=== PATIENT | female | born 1965 | race Caucasian/White ===

== ENCOUNTER 2018-11-27 18:31 | Inpatient (IN) | payer OTHER ==
[2018-11-27 19:00] LABS: #Eosinphils 0.1 thou/uL (0.0-0.7); #Lymphocytes 1.7 thou/uL (1.20-3.40); #Monocytes 0.5 thou/uL (0.11-0.59); #Neutrophils 2.8 thou/uL (1.40-6.50); %Basophils 0.5 % (0.0-1.0); %Lymphocytes 33.1 % (21.0-51.0); %Monocytes 9.4 % (0.0-10.0); Hemoglobin 12.1 g/dL (12.0-16.0); Mean Corpuscular HGB CONC 32.8 g/dL (32.0-36.0); Mean Corpuscular Volume 94.6 fL (78.0-98.0); Mean Platelet Volume 8.4 fL (7.4-10.4); Platelet Count 259 thou/uL (130-400); RBC Distribution Width 13.1 % (11.5-14.5); Red Blood Cell (RBC) Count 3.91 mill/uL (4.20-5.40); White Blood Cell (WBC) Count 5.1 thou/uL (4.8-10.8)
[2018-11-27 19:08] LABS: INR-International Normal Ratio 0.9; PTT 25.9 SEC (22.9-36.1); Prothrombin Time 12.1 SEC (12.0-14.7)
--- NOTE | 2018-11-27 19:13 | RAD ---
PORTABLE CHEST ONE VIEW: 11/27/18 at 6:56 p.m. HISTORY: Chest pain. FINDINGS: The heart size is normal. The lungs are well expanded without focal areas of consolidation, pneumotho races, or pleural effusions. There are postop changes of the upper abdomen. IMPRESSION: No acute process. POS: [facility]
[2018-11-27 19:26] LABS: ALT (SGPT) 31 U/L (8-55); AST (SGOT) 31 U/L (5-34); Albumin 4.1 g/dL (3.5-5.0); Alkaline Phosphatase 127 U/L (40-150); Anion Gap 12 mmol/L (10-20); BUN (Urea Nitrogen) 13 mg/dL (9.8-20.1); Bilirubin, Total 0.2 mg/dL (0.2-1.2); CK (CPK) 74 U/L (29-168); Calc. Creatinine Clearance 0 mL/min (70-130); Calcium 9.5 mg/dL (7.8-10.44); Carbon Dioxide 22 mmol/L (22-29); Chloride 109 mmol/L (98-107); Estimated GFR-MDRD Greater than 90; Globulin 2.7 g/dL (2.4-3.5); Glucose 95 mg/dL (70-105); Magnesium 1.8 mg/dL (1.6-2.6); Potassium 3.8 mmol/L (3.5-5.1); Protein, Total 6.8 g/dL (6.0-8.3); Sodium 139 mmol/L (136-145)
[2018-11-27 19:28] LABS: Phosphorus 2.8 mg/dL (2.3-4.7)
[2018-11-27 19:29] LABS: Bilirubin Negative (Negative); Blood, Urine Negative (Negative); Clarity TURBID (Clear); Glucose, Urine (Dipstick) Negative (Negative); Leukocyte Negative (Negative); Nitrite Negative (Negative); Protein, Urine (Dipstick) Negative (Neg-Trace); Specific Gravity, Urine 1.005 (1.002-1.036); Urobilinogen 0.2 mg/dL (0.2-1.0); pH, Urine 7.5 (5.0-9.0)
[2018-11-27] MEDS ORDERED: Fentanyl 100 MCG/2 ML VIAL ONE (20:04)
[2018-11-27 20:40] LABS: Amphetamine Not Detected (NotDetected); Barbiturates Screen Not Detected (NotDetected); Benzodiazepine Screen Not Detected (NotDetected); Cocaine Metabolite Screen Not Detected (NotDetected); Medtox Control Line Valid? VALID (VALID); Medtox Reader # READER 1; Methadone Not Detected (NotDetected); Methamphetamine Not Detected (NotDetected); Opiate Screen Not Detected (NotDetected); Oxycodone Screen Not Detected (NotDetected); Phencyclidine (PCP) Not Detected (NotDetected); THC/Cannabinoid Screen Not Detected (NotDetected); Tricyclic Screen Not Detected (NotDetected)
[2018-11-27 22:26] LABS: Troponin I 0.016 ng/mL (< 0.028)
[2018-11-28] MEDS ORDERED: Fentanyl 100 MCG/2 ML VIAL SLOW IVP SCH (03:00)
[2018-11-28] MEDS ORDERED: Fentanyl 100 MCG/2 ML VIAL ONE (03:05)
[2018-11-28] MEDS ORDERED: Ondansetron PF 4 MG/2 ML Vial IVP PRN (09:59)
[2018-11-28] MEDS ORDERED: Enoxaparin Sodium 40 MG/0.4 ML SYRINGE SC SCH (10:00)
[2018-11-28] MEDS ORDERED: Acetaminophen 325 MG TAB PO PRN (10:00)
--- NOTE | 2018-11-28 10:57 | HP ---
CHIEF COMPLAINT: Chest pain and palpitations. HISTORY OF PRESENT ILLNESS: A 53-year-old female half-way inmate with known history of paroxysmal SVT, who was brought in by EMS after electrical cardioversion for unstable SVT. The patient reportedly developed palpitations which persisted despite her usual maneuver of bearing down. She subsequently went to the [facility] where she was treated with several medications and maneuvers with no improvement. EMS was subsequently called and EMS reported the blood pressure was low and with heart rates beating up to 170s. Blood pressure further dropped down to 50s and decision was made to electrically cardiovert the patient. She received one treatment with 200 joules with successful electrical cardioversion and the patient remained subsequently in sinus rhythm. She, however, continued to complain of chest discomfort, hence was brought to the emergency room. Since presentation to the emergency room, she has remained in sinus rhythm, but continued to complain of chest discomfort. She denied any recreational drug use. Any change in medication, including over the counter. She also denied shortness of breath, leg swelling, dysuria, hematuria, headache, change in vision. There is also no history of respiratory infection or symptoms of cough or fever or dysuria. PAST MEDICAL HISTORY: 1. Paroxysmal SVT. 2. Obesity, status post gastric bypass. 3. Depression. PAST SURGICAL HISTORY: 1. Gastric bypass surgery. 2. Appendectomy. 3. Cholecystectomy. 4. Partial small intestinal resection. FAMILY HISTORY: Significant for diabetes and hypertension in father. The patient's elder brother from massive heart attack at age 55, but also had a CABG at age 45. SOCIAL HISTORY: The patient currently is an inmate in the half-way. She denied smoking or alcohol use. She admitted to methamphetamine use, which she smoked, but has been off it for more than 5 years. ALLERGIES: REPORTS ALLERGIC REACTION TO ASPIRIN WITH HIVES IN CHILDHOOD. HOME MEDICATIONS: 1. Folic acid daily. 2. Prozac 10 mg daily. 3. Multivitamin once daily. REVIEW OF SYSTEMS: A 12-point review of system performed was negative other than pertinent positives and negatives included in the history of present illness. PHYSICAL EXAMINATION: VITAL SIGNS: On presentation to the emergency room on November 27 at 8:00 p.m., pulse was 82, respiratory rate was 16, temperature was 97.9, SpO2 was 100 on room air, and blood pressure was 114/93. Current vitals at 7:13 a.m. November 28, 2018 shows pulse 61, respiratory rate 16, SpO2 of 97 on room air, blood pressure 107/67. GENERAL: Healthy-looking female, in no obvious distress. Afebrile. Anicteric. Acyanotic. HEENT: Normocephalic, atraumatic. Pupils are equal and reacting to light. Oral mucosa is moist. NECK: Supple, nontender with full range of motion. No tenderness or masses appreciated. CARDIOVASCULAR: Regular rhythm and rate with normal heart sounds 1 and 2. No murmur was appreciated. RESPIRATORY: Good air entry bilaterally with no obvious crackle or rhonchi or use of accessory muscles. GI: Abdomen is full, soft, nontender, nondistended with normal bowel sounds. EXTREMITIES: Grossly normal looking atraumatic with no edema or erythema. Distal pulses are palpable. SKIN: Grossly normal looking with no obvious rash except upper anterior right chest and left mid chest with some erythema. NEUROLOGIC: Conscious, alert, oriented x3 with appropriate mental status. Cranial nerves 2 through 12 are intact. The patient moves all extremities with symmetric power. PSYCHIATRIC: Appropriate with good insight. Affect and mood appropriate. DIAGNOSTIC DATA: CBC performed on November 27, 2018 showed WBC count of 5.1, hemoglobin of 12.1, platelet of 259. CMP performed on November 27, 2018 showed sodium 139, potassium 3.9, chloride 109, CO2 of 22, BUN 13, creatinine 0.64, glucose 95, calcium 9.5, bilirubin total 0.2, total protein 6.8, albumin 4.1, globulin 2.7, alkaline phosphatase 127, AST 31, ALT 31. Serum magnesium performed on November 27, 2018 is 1.8. Serial troponin performed 4 hours apart has been unremarkable. Phosphorus performed on November 27, 2018 is 2.8. BMP performed on December 07 was 101.3. Urinalysis performed on November 27, 2018 was unremarkable with negative leukocyte esterase, nitrites, protein, glucose, ketones, bilirubin or blood. Urine drug screen also performed on November 27, 2018 was unremarkable. 12-lead EKG performed on November 27 showed normal sinus rhythm with no obvious ischemic changes. Chest x-ray performed on November 27, 2018 showed normal-sized heart with well-expanded lungs with no focal areas of consolidation, pneumothorax, or pleural effusion. ASSESSMENT: 1. Persistent supraventricular tachycardia with hemodynamic instability, status post electrical cardioversion. Hemodynamics are better following conversion to normal sinus rhythm. The patient had remained in normal sinus rhythm. Etiology is unclear. Acute myocardial infarction has been ruled out with serial troponin. Urine drug screen also was unremarkable and there are no features of acute infection. 2. Paroxysmal supraventricular tachycardia. 3. History of depression: No acute issues. Denied suicidal ideation. 4. Obesity, status post gastric bypass: No acute issues. BMI is normal currently. PLAN: 1. We will admit the patient for observation. 2. Cardiology consult has been requested. 3. We will get D-dimer to rule out PE. If D-dimer is elevated, we will get CT angio. 4. We will restart the patient's usual medications. 5. Diet as tolerated will be provided. Analgesic as needed also will be provided. 6. DVT prophylaxis with Lovenox. 7. Code: Full code. Job ID: [id number]
[2018-11-28 11:17] LABS: Albumin 3.6 g/dL (3.5-5.0); Anion Gap 9 mmol/L (10-20); BUN (Urea Nitrogen) 10 mg/dL (9.8-20.1); BUN/Creatinine Ratio 17.86; Calc. Creatinine Clearance 134 mL/min (70-130); Calcium 8.9 mg/dL (7.8-10.44); Carbon Dioxide 23 mmol/L (22-29); Chloride 110 mmol/L (98-107); Estimated GFR-MDRD Greater than 90; Glucose 84 mg/dL (70-105); Magnesium 1.8 mg/dL (1.6-2.6); Phosphorus 3.9 mg/dL (2.3-4.7); Potassium 4.1 mmol/L (3.5-5.1); Sodium 138 mmol/L (136-145)
[2018-11-28 11:27] VITALS: BMI 26.6
[2018-11-28] MEDS: HYDROcodone/Acetaminophen 5/325 mg Tablet PO PRN ×3 (11:32→21:49)
[2018-11-28] MEDS: Ondansetron ODT 4 MG TAB PO PRN ×2 (11:32→17:45)
--- NOTE | 2018-11-28 22:21 | CON ---
DATE OF CONSULTATION: 11/28/2018 REASON FOR CONSULTATION: Tachycardia requiring cardioversion. HISTORY OF PRESENT ILLNESS: Ms. Vargas is a 53-year-old woman with a long history of rapid heart rate which she calls SVT. She has had this since at least 2010. She said she has undergone evaluation in the past. She said there was some mention in the past of having an ablation done, but that was not done at that time. 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 The patient has not used methamphetamine for many years. The patient is now incarcerated at the [facility] here in [place]. She said she has had these recurrent episodes that come on suddenly, usually lasts maybe 30 seconds or little bit longer, but this time, it lasted for a couple of hours and her chest started hurting. An ambulance was called and she was going to be brought here, but en route, her blood pressure dropped and her heart rate was apparently in the 170s to 180s. Therefore, she was awake, but cardioverted, back to sinus rhythm. Unfortunately, no strips are available that apparently that was done in the ambulance. The patient states otherwise she has some vague discomfort in her chest, but not consistently with exertion. She states she thinks she will be incarcerated for another year to a year and a half year in [facility] here in [place]. The patient did not lose consciousness with this episode. PAST MEDICAL HISTORY: 1. She has history of obesity. She had previous gastric bypass. 2. Paroxysmal SVT. 3. History of appendectomy. 4. Cholecystectomy. FAMILY HISTORY: Significant for diabetes and hypertension. SOCIAL HISTORY: Inmate has mentioned no smoking or alcohol, no drugs. ALLERGIES: ASPIRIN CAUSED HIVES A CHILD. HOME MEDICINES: Prozac and multivitamins. REVIEW OF SYSTEMS: CONSTITUTIONAL: She has gradually lost weight over the years. HEENT: Vision, no changes. Hearing, no changes. PULMONARY: No cough or wheezing. GASTROINTESTINAL: No nausea, vomiting, or diarrhea. SKIN: No rashes. NEUROLOGIC: No unilateral weakness or numbness. PSYCHIATRIC: No unusual depression or anxiety. PHYSICAL EXAMINATION: VITAL SIGNS: This is a thin, 5 feet 2 inches tall, 146 pounds woman. Blood pressure 106/56, pulse 67 and regular. HEENT: Eyes; sclerae, nonicteric. Mouth; mucous membranes moist. NECK: Supple. No lymphadenopathy. LUNGS: Clear. No wheezing, rales, or rhonchi. CARDIAC: Normal S1, normal S2. There is no murmur, rub, or gallop. ABDOMEN: Soft and nontender. EXTREMITIES: Warm and dry. No clubbing, cyanosis, or edema. Good posterior tibial and dorsalis pedis pulses. LABORATORY DATA: Cardiac enzymes were negative despite 2 hours of tachycardia. Creatinine level was 0.56. EKG: EKG yesterday was normal. Today, she did have some nonspecific T-wave inversions in V3. ASSESSMENT: Recurrent tachycardia, most likely supraventricular tachycardia. This time did not respond to adenosine, did require cardioversion. PLAN: 1. Echocardiogram pending. 2. Consideration for ablation in view of these recurrent episodes which have been very frequent. Ideally, we would like to have some documentation by the electrocardiogram, but her symptoms were so classic that it seems reasonable to proceed. We will discuss with Dr. Alamo. Job ID: [id number]
[2018-11-29] MEDS: HYDROcodone/Acetaminophen 5/325 mg Tablet PO PRN ×2 (08:24→18:33)
[2018-11-29] MEDS: Enoxaparin Sodium 40 MG/0.4 ML SYRINGE SC SCH (09:48)
--- NOTE | 2018-11-29 12:13 | NM ---
NM Cardiac Stress W EF WF History: [Chest pain, SVT. Coronary artery disease.] Comparison: None. Findings: Stress and rest performed after the intravenous administration of 33 and 10.10 mCi techneti um 99 M sestamibi, respectively. Adequate left ventricular uptake of radiotracer. Normal wall motion. Ejection fraction calculated at 69%. Impression: Normal nuclear medicine cardiac stress test and ejection fraction.
--- NOTE | 2018-11-29 12:43 | PDOC.PN ---
- Subjective Encounter Start Date: 11/29/18 Encounter Start Time: 12:39 Subjective: No new problem. -: Denied SOB - Objective Resuscitation Status - Order Detail: 11/28/18 09:59 Resuscitation Status Routine Resuscitation Status: FULL: Full Resuscitation Vital Signs & Weight: Vital Signs (12 hours) Temp Pulse Resp BP Pulse Ox 11/29/18 11:36 97.9 F 71 16 90/44 L 95 11/29/18 07:30 98.3 F 63 16 100/59 L 97 11/29/18 04:23 97.8 F 52 L 18 102/55 L 96 Weight Weight 150 lb 14.4 oz I&O: 11/28/18 11/29/18 11/30/18 06:59 06:59 06:59 Intake Total 490 Balance 490 Result Diagrams: 11/27/18 18:51 11/28/18 10:07 Phys Exam - Physical Examination Constitutional: NAD HEENT: PERRLA, moist MMs Neck: no JVD, supple Respiratory: no wheezing, no rales, no rhonchi, clear to auscultation bilateral Cardiovascular: RRR Gastrointestinal: soft, non-tender, no distention, positive bowel sounds Musculoskeletal: no edema, pulses present Neurological: non-focal, normal sensation, moves all 4 limbs Psychiatric: normal affect, A&O x 3 Dx/Plan (1) Paroxysmal SVT (supraventricular tachycardia) Code(s): I47.1 - SUPRAVENTRICULAR TACHYCARDIA Status: Acute (2) Hemodynamic instability Code(s): R09.89 - OTH SYMPTOMS AND SIGNS INVOLVING THE CIRC AND RESP SYSTEMS Status: Acute (3) History of cardioversion Code(s): Z98.890 - OTHER SPECIFIED POSTPROCEDURAL STATES Status: Acute (4) Depression Code(s): F32.9 - MAJOR DEPRESSIVE DISORDER, SINGLE EPISODE, UNSPECIFIED Status : Acute (5) Anxiety Code(s): F41.9 - ANXIETY DISORDER, UNSPECIFIED Status: Acute (6) Chest pain Code(s): R07.9 - CHEST PAIN, UNSPECIFIED Status: Acute Comment: Acute [place] and PE ruled out with serial troponin, and D dimer. - Plan Stress test as per cardiology -: awaiting Echo. -: For Ablation tomorrow -: continue cupposrtive care. * .
[2018-11-29] MEDS ORDERED: ADENOSINE 60 MG/20 ML VIAL ONE (16:37)
[2018-11-29] MEDS ORDERED: Morphine 2 MG/ML SYRINGE SLOW IVP PRN (21:50)
[2018-11-29] MEDS ORDERED: Sodium Chloride 0.9% 500 ML IV SCH (23:00)
[2018-11-29] MEDS ORDERED: Fentanyl 100 MCG/2 ML VIAL SLOW IVP SCH (23:00)
[2018-11-29 23:26] LABS: ALT (SGPT) 48 U/L (8-55); AST (SGOT) 85 U/L (5-34); Albumin 4.1 g/dL (3.5-5.0); Alkaline Phosphatase 141 U/L (40-150); Anion Gap 15 mmol/L (10-20); BUN (Urea Nitrogen) 12 mg/dL (9.8-20.1); Bilirubin, Total 0.4 mg/dL (0.2-1.2); Calc. Creatinine Clearance 100 mL/min (70-130); Calcium 9.9 mg/dL (7.8-10.44); Carbon Dioxide 21 mmol/L (22-29); Chloride 104 mmol/L (98-107); Estimated GFR-MDRD 88; Glucose 122 mg/dL (70-105); Lipase 27 U/L (8-78); Potassium 3.7 mmol/L (3.5-5.1); Protein, Total 7.1 g/dL (6.0-8.3); Sodium 136 mmol/L (136-145)
--- NOTE | 2018-11-30 02:12 | PDOC.EVN ---
Event Note - Event Note Event Note: Called by MAGI Mijares for chest pain, n/v after eating. Patient examined, reports intermittent pain in upper abdominal. Patient reports hx of cholecystectomy. Patient lying on left side actively passing gas. VS unchanged. No changes via cardiac monitor technician. Exam unremarkable. Ordered labs, EKG, pain meds and bentyl. Pain has now subsided. Labs still pending.
--- NOTE | 2018-11-30 08:33 | CON ---
DATE OF CONSULTATION: 11/29/2018 REASON FOR CONSULTATION: SVT. HISTORY OF PRESENT ILLNESS: Ms. Vargas is a 53-year-old woman with a history of paroxysmal heart racing and palpitations, which she is termed SVT. She has had this since at least 2010 and previously undergone evaluation and has mentioned that there were tentative plans for an ablation, but that this was never done. At that time, she was also addicted to methamphetamines, but has not used for many years. She is currently incarcerated at the [facility] here in [place]. She has recurrent heart racing and palpitations usually only 30 seconds to a minute until this most recent episode, which lasted for a couple of hours, she began to have associated chest pain. EMS was called and reportedly en route, she had hypotension with a heart rate sustaining in the 170-180 beats per minute range. She was cardioverted back to sinus rhythm by EMS. Unfortunately, no documentation of her rhythm is available on her chart. Since being monitored at [facility], she has not had any further heart racing or palpitation episodes. Ms. Vargas currently is feeling well, resting comfortably in bed. She denies any current heart racing, palpitations, chest pain, pressure, syncope, near syncope, stroke, or stroke-like symptoms. PAST MEDICAL HISTORY: 1. Obesity, status post prior gastric bypass. 2. Paroxysmal SVT. 3. Appendectomy. 4. Cholecystectomy. FAMILY HISTORY: Positive for diabetes and hypertension. SOCIAL HISTORY: Incarcerated inmate. Denies alcohol, tobacco, or illicit drug use. History of addiction to methamphetamine. ALLERGIES: ASPIRIN (CAUSED HIVES). HOME MEDICATIONS: Prozac and multivitamins. REVIEW OF SYSTEMS: A 12-point review of systems is conducted, is negative except that listed above in HPI. PHYSICAL EXAMINATION: VITAL SIGNS: Temperature 97.9 degrees Fahrenheit, pulse 71, blood pressure 100/59, respirations 16, oxygen is 95% on room air. GENERAL: The patient is alert and oriented, very petite in stature. She is in no apparent distress, resting comfortably in bed during exam. HEENT: She is normocephalic and atraumatic. Sclerae are anicteric. EOMs are intact. Oral mucosa is moist and pink with adequate dentition. NECK: Supple without jugular venous distention. LUNGS: Clear to auscultation bilaterally. HEART: Rate is irregularly irregular with crisp S1 and S2. PMI nondisplaced. ABDOMEN: Soft and nontender without palpable masses. EXTREMITIES: Warm and dry to touch without clubbing, cyanosis, or edema. NEUROLOGIC: Grossly intact and nonfocal. Gait is not assessed. DATABASE: Laboratory was reviewed. Hematology is unremarkable. Chemistry; potassium 4.1, creatinine 0.56, magnesium 1.8. Troponins were negative. Telemetry and EKG are personally reviewed and reflect normal sinus rhythm, no telemetry tracings or EKGs are available for review from her episode prompting admission. Nuclear stress test on 11/29/2018. Impression, normal nuclear medicine cardiac stress test and ejection fraction estimated at 69%. IMPRESSION: 1. Paroxysmal supraventricular tachycardia. 2. Atypical chest pain associated with heart racing. RECOMMENDATIONS AND PLAN: We discussed SVT and possible treatment options. 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 For this reason, we will keep her n.p.o. after midnight and schedule her for EP study and potential SVT ablation tomorrow afternoon. We discussed risks, benefits, and alternatives. The patient is agreeable with moving forward with the EP study and ablation as mentioned. Thank you for allowing me to participate in care of this patient. Job ID: [id number]
[2018-11-30] MEDS: Enoxaparin Sodium 40 MG/0.4 ML SYRINGE SC SCH (08:40)
[2018-11-30] MEDS ORDERED: Pantoprazole 40 MG VIAL IVP SCH (10:15)
--- NOTE | 2018-11-30 10:21 | PDOC.PN ---
- Subjective Encounter Start Date: 11/30/18 Encounter Start Time: 10:20 Subjective: had epigastric pain and vomiting last night. -: Feeling better today. -: No fever - Objective Resuscitation Status - Order Detail: 11/28/18 09:59 Resuscitation Status Routine Resuscitation Status: FULL: Full Resuscitation Vital Signs & Weight: Vital Signs (12 hours) Temp Pulse Resp BP BP Pulse Ox 11/30/18 07:30 98.4 F 60 14 90/53 L 95 11/30/18 04:15 97.9 F 62 16 98/55 L 96 11/29/18 23:48 51 L 16 122/57 L 98 11/29/18 23:06 59 L 26 H 119/59 L 98 11/29/18 22:36 64 20 117/71 97 Weight Weight 150 lb 14.4 oz I&O: 11/29/18 11/30/18 12/01/18 06:59 06:59 06:59 Intake Total 490 1820 Balance 490 1820 Result Diagrams: 11/27/18 18:51 11/29/18 22:57 Phys Exam - Physical Examination Constitutional: NAD HEENT: PERRLA, moist MMs Neck: no JVD, supple Respiratory: no wheezing, no rhonchi Cardiovascular: RRR Gastrointestinal: soft, no distention, positive bowel sounds epigastric tenderness Musculoskeletal: no edema Neurological: non-focal, moves all 4 limbs Psychiatric: A&O x 3 Dx/Plan (1) Paroxysmal SVT (supraventricular tachycardia) Code(s): I47.1 - SUPRAVENTRICULAR TACHYCARDIA Status: Acute (2) Hemodynamic instability Code(s): R09.89 - OTH SYMPTOMS AND SIGNS INVOLVING THE CIRC AND RESP SYSTEMS Status: Acute (3) History of cardioversion Code(s): Z98.890 - OTHER SPECIFIED POSTPROCEDURAL STATES Status: Acute (4) Depression Code(s): F32.9 - MAJOR DEPRESSIVE DISORDER, SINGLE EPISODE, UNSPECIFIED Status : Acute (5) Anxiety Code(s): F41.9 - ANXIETY DISORDER, UNSPECIFIED Status: Acute (6) Chest pain Code(s): R07.9 - CHEST PAIN, UNSPECIFIED Status: Acute Comment: Acute PA and PE ruled out with serial troponin, and D dimer. (7) GERD (gastroesophageal reflux disease) Code(s): K21.9 - GASTRO-ESOPHAGEAL REFLUX DISEASE WITHOUT ESOPHAGITIS Status: Acute - Plan start PPI -: Continue other treatments. -: Awaiting ablation. -: Get repeat CBC * .
[2018-11-30 11:23] LABS: #Eosinphils 0.1 thou/uL (0.0-0.7); #Lymphocytes 1.3 thou/uL (1.20-3.40); #Monocytes 0.5 thou/uL (0.11-0.59); #Neutrophils 3.1 thou/uL (1.40-6.50); %Basophils 0.1 % (0.0-1.0); %Eosinophils 1.5 % (0.0-10.0); %Lymphocytes 25.9 % (21.0-51.0); %Monocytes 9.5 % (0.0-10.0); %Neutrophils 63.1 % (42.0-75.0); Hemoglobin 12.6 g/dL (12.0-16.0); Mean Corpuscular HGB CONC 32.8 g/dL (32.0-36.0); Mean Corpuscular Hemoglobin 31.4 pg (27.0-31.0); Mean Corpuscular Volume 95.6 fL (78.0-98.0); Mean Platelet Volume 8.2 fL (7.4-10.4); Platelet Count 244 thou/uL (130-400); RBC Distribution Width 13.1 % (11.5-14.5); Red Blood Cell (RBC) Count 4.01 mill/uL (4.20-5.40); White Blood Cell (WBC) Count 4.8 thou/uL (4.8-10.8)
[2018-11-30] MEDS ORDERED: Propofol 1,000 MG/100 ML VIAL IV ONE (14:12)
[2018-11-30] MEDS ORDERED: Isoproterenol 0.2 MG/1 ML AMP ONE (15:05)
[2018-11-30] MEDS ORDERED: Fentanyl 100 MCG/2 ML VIAL ONE (15:52)
[2018-11-30] MEDS ORDERED: Sodium Chloride 0.9% 10 ML ONE (15:56)
[2018-11-30] MEDS ORDERED: PROPOFOL 200 MG/20 ML VIAL ONE (16:56)
--- NOTE | 2018-11-30 22:06 | OP ---
DATE OF PROCEDURE: 11/30/2018 PROCEDURE PERFORMED: Electrophysiology study and radiofrequency ablation report REASON FOR PROCEDURE: Mrs. Vargas has been experiencing recurrent and increasing frequency of SVTs, requiring current hospitalization here for EP study and ablation. DESCRIPTION OF PROCEDURE: The patient received propofol by anesthesia specialist. After adequate level of sedation achieved, the left and right femoral veins were prepped, draped, and anesthetized using subcutaneous lidocaine. Under ultrasound guidance, the left femoral vein was accessed x2 and a 6 and 8-Afghan short sheaths were introduced through which an octapolar and decapolar catheters were advanced into the right atrium under fluoroscopic guidance. The right ventricle, His bundle, right atrium, and CS were all delineated. Pacing, mapping, and recording were performed in each location. The following findings were noted. Baseline rhythm was sinus rhythm at 990 milliseconds. IN was 144 milliseconds, QRS 71 milliseconds, HV 37 milliseconds, AH 110 milliseconds. The AV Wenckebach cycle length was 340 milliseconds. Retrograde Wenckebach cycle length was not noted due to induction of AVNRT. But it was less than 330 milliseconds. AV shelly re-entry tachycardia was induced with VA timing less than 80 milliseconds, narrow complex SVT similar to the history. Ventricular overdrive pacing VA-VA response. At this point, the right femoral vein was accessed under ultrasound guidance, 8-Afghan short sheath was introduced through which a 4-mm standard ablation catheter was advanced to the right atrium, right ventricle, His bundle, CS positions. His bundle clot was clearly delineated and the slow pathway area was . Radiofrequency ablation was performed. A total of 5 lesions delivered at 3 minutes and 25 seconds, total duration at 40 de [place]sa and 50 degrees cutoff. Junctional escape beats were observed at the last ablation. After the ablation was complete, Isuprel was initiated. Atrial right pacing did not reinduce arrhythmia. The AV shelly ERP was 600/300 milliseconds, whereas in the beginning, there was clear dual AV shelly physiology that was present. At this point, the jump was only noted right before the block. No repeated AV shelly reentry tachycardia induced with burst atrial pacing on or off Isuprel. At end of the case, cardiac silhouette did not significantly change. CONCLUSIONS: 1. 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 2. normal His-Purkinje and AV shelly function pre and post ablation otherwise. Job ID: [id number]
[2018-11-30] MEDS: HYDROcodone/Acetaminophen 5/325 mg Tablet PO PRN (22:09)
[2018-12-01 07:58] LABS: Anion Gap 11 mmol/L (10-20); BUN (Urea Nitrogen) 11 mg/dL (9.8-20.1); Calc. Creatinine Clearance 121 mL/min (70-130); Calcium 9.3 mg/dL (7.8-10.44); Carbon Dioxide 25 mmol/L (22-29); Chloride 106 mmol/L (98-107); Estimated GFR-MDRD Greater than 90; Glucose 81 mg/dL (70-105); Potassium 4.2 mmol/L (3.5-5.1); Sodium 138 mmol/L (136-145)
[2018-12-01] MEDS: Enoxaparin Sodium 40 MG/0.4 ML SYRINGE SC SCH (08:29)
[2018-12-01 08:55] VITALS: BP 94/50; TEMP 98.1
--- NOTE | 2018-12-01 09:26 | PDOC.CTH ---
Cardiology Progress Note - Subjective The pt seen and examined. No overnight events. No cardiac complaints. The bilat fem sites is soft to palpitate, no drainage, no hematoma. - Objective Vital Signs Temp Pulse Resp BP BP Pulse Ox 12/01/18 08:00 98.1 F 66 16 94/50 L 95 12/01/18 04:00 62 18 94/52 L 11/30/18 23:28 98.0 F 79 16 87/53 L 95 Weight 150 lb 14.4 oz 11/30/18 12/01/18 12/02/18 06:59 06:59 06:59 Intake Total 1820 380 Output Total 0 Balance 1820 380 - Physical Examination General/Neuro: alert & oriented x3 Neck: no JVD present Lungs: CTA Heart: RRR Abdomen: soft Extremities: other: (No edema) - Telemetry Telemetry Rhythm: SR - Labs Result Diagrams: 11/30/18 11:15 12/01/18 07:22 Troponin/CKMB Troponin I Less than 0.010 ng/mL (< 0.028) 11/29/18 22:57 - Assessment/Plan 1. AVNRT Ablation on 11/30/2018 - remains in SR with HR 60-70s. No bblocker for now due to hypotensive MAR reviewed * From Cardiac standpoint, the pt is stable to d/c. The pt will f/u with Dr Neville's office within 2 wks. Review of Systems - Review of Systems Constitutional: reports: no symptoms reported EENTM: reports: no symptoms reported Respiratory: reports: no symptoms reported Cardiac (ROS): reports: no symptoms reported ABD/GI: reports: no symptoms reported : reports: no symptoms reported Musculoskeletal: reports: no symptoms reported Skin: reports: no symptoms reported
--- NOTE | 2018-12-01 13:54 | EKG ---
Test Reason : Blood Pressure : / mmHG Vent. Rate : 080 BPM Atrial Rate : 080 BPM P-R Int : 098 ms QRS Dur : 084 ms QT Int : 392 ms P-R-T Axes : 061 027 045 degrees QTc Int : 452 ms Sinus rhythm with short VT Otherwise normal ECG Confirmed by JASMINA BLACK DO ([id number]), multimedia editor BRANDEE BRAND ([id number]) on 12/01/2018 1:54:18 PM Referred By: Confirmed By:JASMINA BLACK DO
--- NOTE | 2018-12-03 07:39 | DIS ---
DATE OF ADMISSION: 11/29/2018 DATE OF DISCHARGE: 12/01/2018 DISCHARGE DIAGNOSES: 1. Hemodynamic instability. 2. Status post electrical cardioversion. 3. Paroxysmal supraventricular tachycardia. 4. Atrioventricular shelly reentrant tachycardia. 5. Status post atrioventricular shelly reentrant pathway ablation. 6. Gastroesophageal reflux disease. 7. Depression. 8. Status post gastric bypass. CONSULTS: Cardiology and Electrophysiology. PROCEDURE PERFORMED: Atrioventricular shelly reentrant pathway ablation. 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 The patient was noted to have a blood pressure dropping down to 50 before electrical cardioversion. Cardiology consult was obtained and the patient subsequently was seen by EP, who took the patient to cytology laboratory manager and did ablation of the AV shelly reentrant pathway. The patient remained in sinus rhythm since admission and had no other complaints at discharge. Of note, the patient had some chest pain and acute TX was ruled out with serial troponin. Acute PE was also ruled out with D-dimer. The patient had an episode of gastroesophageal reflux symptoms and was started on PPI with improvement. She is to follow up with Cardiology in 2 to 3 weeks. PHYSICAL EXAMINATION: VITAL SIGNS: Temperature 98.1, pulse 66, respiratory rate 16, SpO2 95% on room air, and blood pressure is 94/50. GENERAL: Healthy-looking female, in no distress. Afebrile. Anicteric. Acyanotic. HEENT: Normocephalic, atraumatic. Pupils are equal and reacting to light. CARDIOVASCULAR: Regular rhythm and rate with normal heart sounds one and two. RESPIRATORY: Good air entry bilaterally with no crackle or rhonchi or use of accessory muscles. GI: Abdomen is full, soft with mild epigastric tenderness. Bowel sound is normoactive. EXTREMITIES: Grossly normal looking, atraumatic with no edema, erythema, or cyanosis. NEUROLOGIC: Conscious, alert, oriented x3 with appropriate mental status. Cranial nerves 2 through 12 are intact. The patient is ambulant. CONDITION AT DISCHARGE: Stable. DISCHARGE MEDICATIONS: 1. Fluoxetine 40 mg p.o. daily. 2. Folic acid 1 mg p.o. daily. 3. Omeprazole 20 mg p.o. daily. 4. Acetaminophen 650 mg q.6 p.r.n. for pain. TIME SPENT: This discharge took more than 35 minutes. Job ID: [id number]
--- NOTE | 2018-12-03 22:39 | EKG ---
Test Reason : Blood Pressure : / mmHG Vent. Rate : 068 BPM Atrial Rate : 068 BPM P-R Int : 124 ms QRS Dur : 082 ms QT Int : 404 ms P-R-T Axes : 058 019 023 degrees QTc Int : 429 ms Normal sinus rhythm Normal ECG When compared with ECG of 28-NOV-2018 02:12, (Unconfirmed) No significant change was found Confirmed by Mariam BROOKS ([id number]) on 12/03/2018 10:39:33 PM Referred By: DELMI Confirmed By:Mariam BROOKS
== END 2018-12-01 11:10 | DRG 274 ==
LOC: ERS 18:31 → 2SW 20:22 → ERHOLD 20:51 → 2SW 11-28 11:17 → OBSVTOIN 11-29 08:12
PROVIDERS: ADMIT Internal Medicine; ATTEND Internal Medicine
PROC: 5A2204Z Restoration of Cardiac Rhythm, Single (ICD-10-PCS; principal; 2018-11-29)
PROC: 02583ZZ Destruction of Conduction Mechanism, Percutaneous Approach (ICD-10-PCS; 2018-11-30)
PROC: 02K83ZZ Map Conduction Mechanism, Percutaneous Approach (ICD-10-PCS; 2018-11-30)
PROC: 4A023FZ Measurement of Cardiac Rhythm, Percutaneous Approach (ICD-10-PCS; 2018-11-30)
PROC: 4A0234Z Measurement of Cardiac Electrical Activity, Percutaneous Approach (ICD-10-PCS; 2018-11-30)
DX: I47.1 Supraventricular tachycardia (principal); R07.89 Other chest pain; K21.9 Gastro-esophageal reflux disease without esophagitis; F41.8 Other specified anxiety disorders; Z98.84 Bariatric surgery status; Z90.49 Acquired absence of other specified parts of digestive tract; Z82.49 Family history of ischemic heart disease and other diseases of the circulatory system; Z88.8 Allergy status to other drugs, medicaments and biological substances
CPT/HCPCS: 36415; 71045; 76942; 78452; 80048; 80053; 80069; 80306; 81003; 82550; 83690; 83735; 83880; 84100; 84484; 85025; 85379; 85610; 85730; 93005; 93010; 93017; 93306; 93613; 93621; 93623; 93653; 94760; A9500; C1730; C1769; C9113; J0153; J0500; J1644; J1650; J2270; J2405; J2704; J3010; Q0162

== ENCOUNTER 2018-12-21 20:41 | Observation (INO) | payer OTHER ==
[2018-12-21 21:13] LABS: #Basophils 0.1 thou/uL (0.0-0.2); #Eosinphils 0.1 thou/uL (0.0-0.7); #Lymphocytes 1.8 thou/uL (1.20-3.40); #Monocytes 0.5 thou/uL (0.11-0.59); #Neutrophils 2.8 thou/uL (1.40-6.50); %Basophils 1.2 % (0.0-1.0); %Eosinophils 1.6 % (0.0-10.0); %Monocytes 10.1 % (0.0-10.0); %Neutrophils 53.1 % (42.0-75.0); Hemoglobin 12.1 g/dL (12.0-16.0); Mean Corpuscular HGB CONC 33.5 g/dL (32.0-36.0); Mean Corpuscular Hemoglobin 31.6 pg (27.0-31.0); Mean Corpuscular Volume 94.1 fL (78.0-98.0); Mean Platelet Volume 8.4 fL (7.4-10.4); Platelet Count 260 thou/uL (130-400); RBC Distribution Width 13.3 % (11.5-14.5); Red Blood Cell (RBC) Count 3.84 mill/uL (4.20-5.40); White Blood Cell (WBC) Count 5.2 thou/uL (4.8-10.8)
[2018-12-21 21:34] LABS: ALT (SGPT) 30 U/L (8-55); AST (SGOT) 28 U/L (5-34); Albumin 4.5 g/dL (3.5-5.0); Alkaline Phosphatase 126 U/L (40-150); Anion Gap 13 mmol/L (10-20); BUN (Urea Nitrogen) 13 mg/dL (9.8-20.1); Bilirubin, Total 0.3 mg/dL (0.2-1.2); CK (CPK) 61 U/L (29-168); Calc. Creatinine Clearance 0 mL/min (70-130); Calcium 9.8 mg/dL (7.8-10.44); Carbon Dioxide 23 mmol/L (22-29); Chloride 106 mmol/L (98-107); Estimated GFR-MDRD Greater than 90; Globulin 2.8 g/dL (2.4-3.5); Glucose 90 mg/dL (70-105); Lipase 32 U/L (8-78); Protein, Total 7.3 g/dL (6.0-8.3); Sodium 138 mmol/L (136-145)
--- NOTE | 2018-12-21 21:59 | RAD ---
Portable frontal chest radiograph: 12/21/2018 COMPARISON: 11/27/2018 HISTORY: Pain FINDINGS: Lungs are clear. Heart and mediastinal contours appear within normal limits. Stable clips i n upper abdomen. IMPRESSION: No acute findings.
[2018-12-21] MEDS ORDERED: Nitroglycerin 0.4 MG TAB 1 EACH ONE (22:06)
[2018-12-21 23:34] VITALS: BMI 25.3
[2018-12-22] MEDS ORDERED: Acetaminophen 650 MG Suppository PR PRN (03:00)
[2018-12-22] MEDS ORDERED: Senokot S 8.6-50 MG TAB PO PRN (03:00)
[2018-12-22] MEDS ORDERED: Acetaminophen 325 MG TAB PO PRN (03:00)
[2018-12-22] MEDS ORDERED: Ondansetron ODT 4 MG TAB PO PRN (03:00)
[2018-12-22] MEDS ORDERED: Lidocaine 2% Viscous Solution 10 ML, Aluminum & Magnesium Hydroxide 30 ML SSW SCH (03:15)
[2018-12-22 03:48] VITALS: TEMP 98
[2018-12-22 05:05] LABS: #Eosinphils 0.1 thou/uL (0.0-0.7); #Lymphocytes 1.6 thou/uL (1.20-3.40); #Monocytes 0.6 thou/uL (0.11-0.59); #Neutrophils 3.2 thou/uL (1.40-6.50); %Basophils 0.2 % (0.0-1.0); %Eosinophils 2.3 % (0.0-10.0); %Monocytes 10.6 % (0.0-10.0); Hemoglobin 10.9 g/dL (12.0-16.0); Mean Corpuscular HGB CONC 33.8 g/dL (32.0-36.0); Mean Corpuscular Volume 94.9 fL (78.0-98.0); Mean Platelet Volume 8.5 fL (7.4-10.4); Platelet Count 221 thou/uL (130-400); RBC Distribution Width 13.1 % (11.5-14.5); White Blood Cell (WBC) Count 5.4 thou/uL (4.8-10.8)
--- NOTE | 2018-12-22 05:25 | HP ---
CHIEF COMPLAINT: Chest pain. 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 this morning. The patient was recently admitted for SVT and seen by Dr. Neville. During her recent admission, she underwent an AV shelly reentrant pathway ablation for paroxysmal SVT. She also underwent electrocardioversion. The patient was advised to inform Medical if her symptoms resolved. She had an echocardiogram done during her admission, which showed a normal EF of 60% to 65% with grade 1/3 diastolic dysfunction, mild tricuspid regurgitation, mild mitral regurgitation, mildly dilated left atrium, mildly enlarged right atrium size and aortic valve sclerosis, but with good opening. The patient states she felt a similar sensation this morning when her heart "started to kick off as if it was beating out of her chest," and states this sensation lasted 25 seconds only. Since then, she has had a constant pressure sensation in her chest, which she is unable to rate in terms of severity. Her discomfort is nonradiating; however, she describes occasional sharp pains on the left lateral lower ribcage, described as sharp, stabbing pains that comes in with deep inspiration. She denies having any productive cough or hemoptysis. She states she does have a chronic occasional cough at baseline that is dry and it remains unchanged. Denies having any shortness of breath with exertion or at rest. No abdominal pain. No nausea or vomiting. No lower leg swelling or calf tenderness. No changes with her bowels and no urinary symptoms. All other review of systems is negative. PAST MEDICAL HISTORY: 1. SVT. 2. Depression. 3. Grade 1/3 diastolic heart dysfunction with normal EF of 60% to 65%. PAST SURGICAL HISTORY: 1. x2. 2. Gastric bypass. 3. Hiatal hernia repair. 4. Sinus surgery. 5. Status post cardiac ablation/cardioversion. 6. Hysterectomy. 7. Appendectomy. 8. Cholecystectomy. SOCIAL HISTORY: The patient lives in [facility]. She denies any alcohol use, smoking, or illicit drug use. ALLERGIES: ASPIRIN. CURRENT MEDICATIONS: 1. Folic acid. 2. Prozac. PHYSICAL EXAMINATION: GENERAL: The patient appears well developed, well nourished, and in no acute distress. VITAL SIGNS: Temperature 97.6, pulse 55, respirations 17, O2 saturation 97% on room air, and blood pressure 115/56. HEENT: Normocephalic and atraumatic. Pupils are equal, round, and reactive to light. Sclerae without icterus. Oropharynx is clear. NECK: Supple without lymphadenopathy. LUNGS: Clear to auscultation bilaterally without wheezes, rales, or rhonchi. She does report pleuritic-type chest pain on her left side and increased pressure in her chest with deep inspiration. Pain is slightly worsened with palpation of the anterior chest. CARDIAC: Regular rate and rhythm. ABDOMEN: Soft, nontender, and nondistended. No guarding or rigidity. No renal angle tenderness. Normoactive bowel sounds present. EXTREMITIES: No lower leg edema or calf tenderness or swelling. NEUROLOGIC: Alert and oriented x3. SKIN: Without rash or jaundice. LABORATORY DATA: White blood count 5.2, hemoglobin 12.1, hematocrit 36.1, and platelets 260. Sodium 138, potassium 4.0, BUN 13, creatinine 0.68, GFR greater than 90, glucose 90, calcium 9.8, total bilirubin 0.3, AST 28, ALT 30, and alkaline phosphatase 126. CK 61. Initial troponin I negative. Albumin 4.5, total protein 7.3. Lipase 32. IMAGING DATA: Chest x-ray: No acute findings. Mediastinal contours appear within normal limits. Stable clips in the upper abdomen. IMPRESSION AND PLAN: Ms. Vargas is a pleasant 53-year-old woman, presenting with palpitations and chest pain, being admitted for acute coronary syndrome rule out. Initial troponin negative. EKG done in the ER showed sinus bradycardia. Heart rate was 55. The patient was given nitroglycerin in the ED. She states she continues with pressure in her chest, which is slightly reproducible on exam with palpation. She also describes pleuritic-type chest pain in the left lateral chest. I have added on the D-dimer. If positive, she will undergo a CT angiogram to rule out pulmonary embolism. With regard to the palpitations, she describes experiencing earlier today for a period of 25 seconds. We will continue to monitor on tele. At present, her heart rate remains within normal range. She has undergone an echocardiogram recently. We leave for day team to decide of any indication for further investigations including consult to Cardiology. Still awaiting second and third troponins. The patient is requesting medication for indigestion as she feels her hiatal hernia might be causing her symptoms. GI cocktail ordered. The patient's case was discussed with Dr. Malhotra, who agrees with plan of care as described above. Of note, patient is full code status. Her surrogate decision maker is her daughter, Mary Beth Robison. DVT prophylaxis with mechanical SCDs. She is being evaluated for possible pulmonary embolism. Gastrointestinal prophylaxis with famotidine 20 mg IV b.i.d. We will give Tylenol for her discomfort, which is currently 4/10 in severity. Job ID: [id number]
[2018-12-22 05:31] LABS: Anion Gap 12 mmol/L (10-20); BUN (Urea Nitrogen) 15 mg/dL (9.8-20.1); Calc. Creatinine Clearance 106 mL/min (70-130); Calcium 9.3 mg/dL (7.8-10.44); Carbon Dioxide 21 mmol/L (22-29); Chloride 110 mmol/L (98-107); Estimated GFR-MDRD Greater than 90; Glucose 86 mg/dL (70-105); Sodium 139 mmol/L (136-145)
[2018-12-22 05:33] LABS: Troponin I Less than 0.010 ng/mL (< 0.028)
[2018-12-22 08:25] LABS: Troponin I Less than 0.010 ng/mL (< 0.028)
[2018-12-22] MEDS ORDERED: Folic Acid 1 MG TAB PO SCH (09:00)
[2018-12-22] MEDS ORDERED: FLUoxetine HCl 20 MG CAP PO SCH (09:00)
[2018-12-22] MEDS ORDERED: Famotidine/PF 20 mg/2ml Vial SLOW IVP SCH (09:00)
[2018-12-22 11:35] VITALS: BP 99/46
--- NOTE | 2018-12-22 16:08 | CON ---
DATE OF CONSULTATION: PRIMARY CERTIFIED MORTICIAN: Carine Neville MD PRIMARY MANAGER NON PROFIT: Mina Alamo MD REFERRING DOCTOR: Berna woo. REASON FOR CONSULT: Chest pain. HISTORY OF PRESENT ILLNESS: Ms. Vargas is a 53-year-old female with significant history of nonsustained SVT with ablation in November 2018, guard. The patient has underwent two SVT ablations in November 2018. Since then, she was doing well till last week. She started having skipping beats for few seconds every other days. However, yesterday, she has 25 seconds of skipping beats with fluttering feeling in her chest with shortness of breath and mild lightheadedness. Due to those reasons, the patient was transferred to Emergency Department for further evaluation and treatment. She also complained of sharp and dull like pain to mediastinal area, which became worse with movement and taking a deep breathing and palpitation at the site. She had that symptom for 2 to 3 months. Already, she had a stress test last month in November 2018, which shows no ischemia and normal echocardiogram with grade 1 diastolic dysfunction. She also complained of fatigue for a few days. She has follow up with Dr. Neville last week. During the examination, she did not show any PVC or PAC on the EKG and she was told to continue to monitor. She is supposed to follow up with GI doctor next week for EGD and colonoscopy due to history of gastric bypass 26 years ago. Besides those episodes, the patient denied chest pain, heaviness, tightness, dizziness, nausea, vomiting, or any other cardiac complaints. PAST MEDICAL HISTORY: 1. SVT. 2. Depression. 3. Grade 1 diastolic dysfunction. PAST SURGICAL HISTORY: x2, gastric bypass 26 years ago, total hernia repair, sinus surgery, status post cardiac ablation and cardioversion in November 2018 for SVT, total hysterectomy, appendectomy, and cholecystectomy. FAMILY HISTORY: Noncontributory. SOCIAL HISTORY: The patient is incarcerated. The patient denied alcohol, tobacco, or illicit drug abuse. ALLERGIES: SHE IS ALLERGIC TO ASPIRIN, WHICH CAUSED HIVES. CURRENT MEDICATIONS: 1. Folic acid. 2. Prozac, which was changed to Protonix 40 mg once a day. REVIEW OF SYSTEMS: Twelve-point review of systems negative unless otherwise mentioned in the HPI. PHYSICAL EXAMINATION: GENERAL: The patient is alert and oriented x4. Nonfocal. HEENT: Normocephalic and atraumatic. Eyes, extraocular muscle movement intact. ENT and mouth, oral and nasal mucosa moist without lesion. NECK: Supple. Normal range of motion. No bruit or thrill noted. No JVD. RESPIRATORY: Clear to auscultate bilaterally without wheezing or rhonchi noted. CARDIAC: Regular rate and rhythm. Normal S1 and S2. There are no S3 or S4. No significant murmur, hives, or thrill noted. 2+ pulses in bilateral upper and lower extremity. No edema in lower extremities. ABDOMEN: Soft and nontender. No mass to palpitate. Bowel sounds are present. SKIN: Warm and dry. No rash, lesion, or erythema noted. MUSCULOSKELETAL: The patient able to move all extremities without difficulty. The patient denied claudication. PSYCHIATRIC: The patient's mood is appropriate. NEUROLOGIC: Alert and oriented x4. Nonfocal. LABORATORY DATA: WBC 5.4, hemoglobin 10.9, hematocrit 32.3, and platelets 221. Sodium 139, potassium 4.0, BUN 15, creatinine 0.65. AST 28, and ALT 30. Troponin is negative x4. D-dimer is negative. Chest x-ray shows no acute finding. A 12-lead EKG shows sinus bradycardia, heart rate of 55, no ST-segment change or T-wave inversion. The patient's telemetry record shows no significant PAC or PVC or any arrhythmia at this moment. ASSESSMENT AND PLAN: 1. Atypical chest pain. The patient's symptom is atypical and possible from musculoskeletal etiology or also possible from the guard. The patient was recommended to resume the omeprazole for Protonix and also take the ibuprofen or Tylenol for the pain. 2. Palpitation. Although, the patient started having palpitation since last week. It is not significant at this moment, possible beneficial to follow up with EP doctor or her primary fmd teacher as soon as possible and get a monitor for couple weeks to continue to monitor her symptoms. At this moment, we are not going to change any current medication. 3. Depression. The patient's condition is stable at this moment. We are going to defer to the patient's primary care doctor. 4. History of grade 1, diastolic heart failure, diastolic dysfunction, which is stable at this moment without any diuretic or angiotensin-converting enzyme inhibitor or beta doug. We would continue to monitor. Thank you very much for allowing the Cardiology Service to participate in the care of this patient. We will follow along the patient's care team and make further recommendations as appropriate. Job ID: [id number]
--- NOTE | 2018-12-24 07:47 | CON ---
DATE OF CONSULTATION: 12/22/2018 ADDENDUM: INDICATION FOR CONSULTATION: A 53-year-old female, who underwent ablation of SVT last month. She then yesterday noticed that she had another episode of a rapid heart rate, lasted about 15 to 20 seconds about 25 at maximum and she then reported this to the primary, where she has been incarcerated and she was then brought to the emergency room. Since she has been here, she has had no further arrhythmias and has remained stable. She should be able to be discharged back to the facility and then can follow up with Dr. Neville or with Electrophysiology for possible monitor. If she continued to have further episodes, otherwise this would not be too unusual to have a short burst of some atrial arrhythmias after an ablation, but if she remains stable, then no further intervention will be indicated. If she continues to have SVT, she may need to have a repeat ablation. Otherwise, she is doing quite well. Her EKG is unremarkable. Enzymes are unremarkable. No indication of coronary artery disease in this patient. She had negative stress test in the past. PHYSICAL EXAMINATION: GENERAL: Reveals a well-developed, well-nourished female, in no acute distress. Her vital signs are stable. CHEST: Clear to auscultation. CARDIOVASCULAR: Reveals a regular rate and rhythm. ABDOMEN: Soft and nontender. EXTREMITIES: No clubbing, cyanosis, or edema. NEUROLOGIC: She is fully intact. IMPRESSION AND PLAN: 1. Palpitations, which may or may not have been supraventricular tachycardia. If this continues. We will need to have a monitor placed. 2. History of supraventricular tachycardia ablation. She appears to be stable. Uncertain exactly what arrhythmia she did have yesterday, but otherwise at this time appears to be stable. The vital signs are stable. Would continue her present medications. I will call her medications only include folic acid, and Prozac. From a cardiac standpoint she is stable and can be discharged back to the facility. Job ID: [id number]
== END 2018-12-22 14:02 ==
LOC: EEVIPCON 20:41 → ERS 20:41 → 2SW 23:19
PROVIDERS: ADMIT Internal Medicine; ATTEND Internal Medicine
DX: R07.9 Chest pain, unspecified (principal); R00.2 Palpitations; F32.9 Major depressive disorder, single episode, unspecified; Z79.899 Other long term (current) drug therapy; Z88.8 Allergy status to other drugs, medicaments and biological substances
CPT/HCPCS: 36415; 71045; 80048; 80053; 82550; 83690; 84484; 85025; 85379; 93005; 96374; G0378; S0028

== ENCOUNTER 2018-12-27 10:45 | Day surgery (SDC) | payer OTHER ==
[2018-12-26 12:54] VITALS: BMI 25.7
[2018-12-27] MEDS ORDERED: Fentanyl 100 MCG/2 ML VIAL ONE (12:35)
[2018-12-27] MEDS ORDERED: PROPOFOL 200 MG/20 ML VIAL ONE (14:51)
[2018-12-27] MEDS ORDERED: Lidocaine 1% PF 5 ML VIAL ONE (14:51)
--- NOTE | 2018-12-27 20:12 | OP ---
DATE OF PROCEDURE: 12/27/2018 PROCEDURE PERFORMED: Colonoscopy. PREPROCEDURE DIAGNOSES: 1. Intermittent rectal bleeding. 2. Lower abdominal pain. 3. History of colon polyps with last colonoscopy 10 years ago. POSTPROCEDURE DIAGNOSES: 1. Exam to cecum; inadequate bowel preparation. 2. Mildly redundant sigmoid colon. 3. Small internal hemorrhoids and hypertrophied anal papilla. 4. No evidence of active bleeding in the colon. 5. No obvious polyp seen, examination for polyps less than 6 mm was extremely limited due to poor quality of bowel preparation. DESCRIPTION OF PROCEDURE: Written informed consent was obtained. Upon completion of the EGD, the patient was repositioned for the colonoscopy. Total intravenous anesthesia was administered by Dr. Cuello. The patient was placed in left lateral decubitus position. A digital rectal exam was performed that showed a few perianal skin tags. The Pentax video colonoscope was inserted through the anal canal and advanced under direct visualization to the cecum. Position in the cecum was verified by clear identification of the appendiceal orifice and the ileocecal valve. The quality of the bowel preparation was inadequate. Thick liquid stool coated much of the mucosa of the cecum, ascending colon, and transverse colon. Using copious irrigation with sterile water and suctioning, some of the mucosa was cleared with fair visualization. No large polyps were identified. Examination for diminutive polyps, 6 mm or less, was extremely limited due to the suboptimal bowel preparation. In the rectum, a retroflexed view demonstrated small internal hemorrhoids and hypertrophied anal papilla that were not actively bleeding. The colon was then decompressed as the colonoscope was completely removed from the patient. She was transferred to the Day Stay Surgery area for postprocedure monitoring. There were no immediate complications. RECOMMENDATIONS: 1. High-fiber, low-fat diet. 2. Consider addition of Colace 100 mg b.i.d. 3. Add Metamucil one heaping teaspoon in water twice daily. 4. Sitz baths t.i.d. p.r.n. hemorrhoids. 5. Analpram HC cream 2.5% applied t.i.d. p.r.n. hemorrhoids. 6. Repeat colonoscopy in 1-2 years. 7. Follow up in GI Clinic as per my EGD report. 8. Resume previous medications. Job ID: [id number]
--- NOTE | 2018-12-27 20:18 | OP ---
DATE OF PROCEDURE: 12/27/2018 PROCEDURE PERFORMED: EGD with esophageal dilation and biopsy. PREPROCEDURE DIAGNOSES: 1. Chronic solid-food dysphagia. 2. Heartburn. 3. History of gastric bypass for weight loss. POSTPROCEDURE DIAGNOSES: 1. Exam to operative stoma. 2. Small 1 cm sliding hiatal hernia. 3. Grade A esophagitis at 35 cm, biopsied. 4. Normal-appearing gastric remnant with operative stoma appearing intact without ulceration or bleeding. 5. Efferent limb of the small bowel identified and traversed for 10 cm with no significant abnormalities. 6. Mild stenosis of the upper esophagus, dilated with a 54-Finnish Teran bougie with some improvement. DESCRIPTION OF PROCEDURE: Written informed consent was obtained. The patient was brought to the endoscopy suite. Total intravenous anesthesia was administered by Dr. Cuello. The patient was placed in left lateral decubitus position. A bite block was inserted into the mouth. A Pentax video diagnostic gastroscope was introduced into the oral cavity and the esophagus was carefully intubated. The gastroscope was advanced under direct visualization into the operative stoma. Endoscopic findings revealed mild narrowing at the upper esophagus with no resistance to forward movement of the endoscope. A 1 cm sliding hiatal hernia was identified. Grade A esophagitis was also noted at 35 cm and later biopsied after the dilation. Examination of the gastric remnant revealed no evidence of gastritis or gastric ulcer. The anastomosis appeared intact without ulcer, mass, or bleeding. The efferent limb of the small bowel loop was identified and examined for about 10-12 cm and appeared intact. Using a 54-Finnish Teran bougie, the esophagus was gently dilated. Post dilation, the gastroscope was reintroduced and 2 small mucosal disruptions were noted at 15 cm from the incisor teeth. There was no evidence of overt tear or perforation. The esophageal lumen appeared more patent post dilation. It was at this point that the esophageal biopsies were obtained. The stomach and esophagus were decompressed as the endoscope was completely removed from the patient. She was then repositioned for the colonoscopy. There were no immediate complications. RECOMMENDATIONS: 1. Await biopsy results. 2. Ask the patient to call me in 2 week for biopsy results. 3. Initiate pantoprazole 40 mg daily for 6 weeks. 4. Follow up in GI clinic in 6 weeks. Job ID: [id number]
== END 2018-12-27 14:20 | disposition home or self-care (01) ==
LOC: SDC 10:45
PROVIDERS: ATTEND Internal Medicine Gastroenterology
PROC: 0D758ZZ Dilation of Esophagus, Via Natural or Artificial Opening Endoscopic (ICD-10-PCS; principal; 2018-12-27)
PROC: 0DJD8ZZ Inspection of Lower Intestinal Tract, Via Natural or Artificial Opening Endoscopic (ICD-10-PCS; principal; 2018-12-27)
PROC: 0DB38ZX Excision of Lower Esophagus, Via Natural or Artificial Opening Endoscopic, Diagnostic (ICD-10-PCS; principal; 2018-12-27)
PROC: 0DJ08ZZ Inspection of Upper Intestinal Tract, Via Natural or Artificial Opening Endoscopic (ICD-10-PCS; principal; 2018-12-27)
DX: K22.2 Esophageal obstruction (principal); K62.5 Hemorrhage of anus and rectum; K20.9 Esophagitis, unspecified; K44.9 Diaphragmatic hernia without obstruction or gangrene; K64.8 Other hemorrhoids; K62.89 Other specified diseases of anus and rectum; F32.9 Major depressive disorder, single episode, unspecified; Z88.6 Allergy status to analgesic agent; Z79.899 Other long term (current) drug therapy; Z98.84 Bariatric surgery status; Z86.010 Personal history of colon polyps
CPT/HCPCS: 88305; 88312; 88313; J2001; J2704; J3010

== ENCOUNTER 2019-02-08 11:41 | Emergency (ER) | payer OTHER ==
[2019-02-08] MEDS ORDERED: Acetaminophen/Codeine 30-300mg Tablet ONE (12:39)
--- NOTE | 2019-02-08 13:02 | CT ---
CT ABDOMEN WITHOUT CONTRAST: CT PELVIS WITHOUT CONTRAST: HISTORY: Left flank pain. COMPARISON: None FINDINGS: Abdomen CT: Lung bases: Irregular opacity in the left lower lobe, measuring 1.8 x 1.5 cm. Focal infiltrate or po ssible atelectasis is a consideration. Heart size: Nonenlarged. Aorta: Normal caliber. Solid organs: Limited evaluation due to lack of IV contrast. Grossly no solid organ abnormality. Lymph nodes: No gastrohepatic, retrocrural, or periportal lymphadenopathy. Gallbladder: Surgically absent. Mesentery: No mass, lymphadenopathy, free air, or free fluid. Kidneys: Bilaterally, no hydronephrosis, nephrolithiasis, or perinephric fat stranding. Bilateral u reters have a normal caliber. No hydroureter, periureteral fat stranding, or ureterolithiasis. Alimentary canal: Limited evaluation due to lack of oral contrast administration. There is suggesti on of previous bariatric surgical change. No evidence of bowel obstruction. The ileocecal junction is normal. An appendix is not appreciated. No inflammation at the cecal apex. Scattered f ecal material in a nondistended, nondilated colon. Occasional diverticulosis. No diverticulitis. Incidental scattered surgical clips throughout the abdomen. CT PELVIS: No mass, adenopathy, free air or free fluid. Surgically absent uterus. Urinary bladder: Unremarkable. Osseous structures: No lytic or blastic lesions IMPRESSION: 1. No evidence of obstructive uropathy. 2. Evidence of previous intra-abdominal surgery. No evidence of bowel obstruction. 3. Focal opacity in the left lower lobe, which may represent infiltrate or atelectasis. Given irreg ular margination, short-term follow-up CT is recommended. Code T Code LN Transcribed Date/Time: 02/08/2019 1:23 PM
[2019-02-08 13:07] LABS: #Basophils 0.1 thou/uL (0.0-0.2); #Eosinphils 0.1 thou/uL (0.0-0.7); #Lymphocytes 1.6 thou/uL (1.20-3.40); #Monocytes 0.5 thou/uL (0.11-0.59); #Neutrophils 3.4 thou/uL (1.40-6.50); %Basophils 1.1 % (0.0-1.0); %Eosinophils 1.6 % (0.0-10.0); %Lymphocytes 27.8 % (21.0-51.0); %Neutrophils 60.5 % (42.0-75.0); Hemoglobin 12.3 g/dL (12.0-16.0); Mean Corpuscular HGB CONC 33.5 g/dL (32.0-36.0); Mean Corpuscular Hemoglobin 31.3 pg (27.0-31.0); Mean Corpuscular Volume 93.3 fL (78.0-98.0); Mean Platelet Volume 8.5 fL (7.4-10.4); Platelet Count 229 thou/uL (130-400); RBC Distribution Width 12.7 % (11.5-14.5); Red Blood Cell (RBC) Count 3.92 mill/uL (4.20-5.40); White Blood Cell (WBC) Count 5.6 thou/uL (4.8-10.8)
[2019-02-08 13:11] LABS: PTT 27.3 SEC (22.9-36.1); Prothrombin Time 13.5 SEC (12.0-14.7)
[2019-02-08 13:18] LABS: ALT (SGPT) 28 U/L (8-55); AST (SGOT) 29 U/L (5-34); Albumin 4.4 g/dL (3.5-5.0); Alkaline Phosphatase 146 U/L (40-150); Anion Gap 17 mmol/L (10-20); BUN (Urea Nitrogen) 17 mg/dL (9.8-20.1); Bilirubin, Total 0.6 mg/dL (0.2-1.2); Calc. Creatinine Clearance 0 mL/min (70-130); Calcium 9.7 mg/dL (7.8-10.44); Carbon Dioxide 18 mmol/L (22-29); Chloride 103 mmol/L (98-107); Estimated GFR-MDRD 86; Globulin 2.7 g/dL (2.4-3.5); Glucose 75 mg/dL (70-105); Lipase 26 U/L (8-78); Potassium 4.2 mmol/L (3.5-5.1); Protein, Total 7.1 g/dL (6.0-8.3); Sodium 134 mmol/L (136-145)
[2019-02-08] MEDS ORDERED: Ketorolac Tromethamine 60 MG/2 ML VIAL ONE (14:52)
[2019-02-08 15:08] LABS: Bilirubin Negative (Negative); Blood, Urine Negative (Negative); Clarity CLEAR (Clear); Glucose, Urine (Dipstick) Negative (Negative); Leukocyte Small (Negative); Nitrite Negative (Negative); Protein, Urine (Dipstick) Negative (Neg-Trace); Specific Gravity, Urine 1.019 (1.002-1.036); pH, Urine 5.5 (5.0-9.0)
[2019-02-08 15:10] LABS: Bacteria/HPF None Seen HPF (None Seen); Hyaline Casts/LPF 0-3 HYALINE CAST LPF (0-3 Hyaline); Pathc Cast-AUWi Flag 0.13 (0-2.49); Squamous Epithelial 0-3 HPF (0-3); WBC/HPF 0-3 HPF (0-3)
[2019-02-08] MEDS ORDERED: Mag-Al 1200 mg/1200 mg/30 ML UDCUP ONE ×2 (15:55→15:56)
[2019-02-08] MEDS ORDERED: Lidocaine Viscous Sol 2% 15 ml UD Cup ONE (15:55)
== END 2019-02-08 17:55 | disposition home or self-care (01) ==
LOC: ERS 11:41
DX: M54.5 Low back pain (principal); F32.9 Major depressive disorder, single episode, unspecified; I47.1 Supraventricular tachycardia; Z79.899 Other long term (current) drug therapy
CPT/HCPCS: 36415; 74176; 80053; 81003; 81015; 83605; 83690; 84484; 85025; 85610; 85730; 87086; 96372; J1885

== ENCOUNTER 2019-04-24 21:18 | Inpatient (IN) | payer OTHER ==
--- NOTE | 2019-04-24 21:51 | RAD ---
Chest one view HISTORY: Chest pain. COMPARISON: 12/21/2018. FINDINGS: Cardiac silhouette is magnified by projection. Pulmonary vasculature is unremarkable. Media stinum is midline. No confluent airspace consolidation or evidence of pneumothorax. Postoperative changes of the left upper quadrant of the abdomen. IMPRESSION: No active cardiopulmonary abnormalities are demonstrated.
[2019-04-24 21:54] LABS: Bilirubin Negative (Negative); Blood, Urine Negative (Negative); Clarity Clear (Clear); Glucose, Urine (Dipstick) Normal (Negative); Leukocyte Negative Leu/uL (Negative); Nitrite Negative (Negative); Protein, Urine (Dipstick) Negative (Neg-Trace); Urobilinogen Normal mg/dL (Less than 2)
[2019-04-24 22:12] LABS: #Eosinphils 0.1 thou/uL (0.0-0.7); #Lymphocytes 1.6 thou/uL (1.20-3.40); #Monocytes 0.6 thou/uL (0.11-0.59); #Neutrophils 2.7 thou/uL (1.40-6.50); %Basophils 0.6 % (0.0-1.0); %Eosinophils 2.3 % (0.0-10.0); %Lymphocytes 31.1 % (21.0-51.0); %Monocytes 11.9 % (0.0-10.0); %Neutrophils 54.1 % (42.0-75.0); Hemoglobin 11.1 g/dL (12.0-16.0); Mean Corpuscular HGB CONC 33.9 g/dL (32.0-36.0); Mean Corpuscular Hemoglobin 31.2 pg (27.0-31.0); Mean Platelet Volume 8.1 fL (7.4-10.4); Platelet Count 254 thou/uL (130-400); RBC Distribution Width 12.6 % (11.5-14.5); Red Blood Cell (RBC) Count 3.56 mill/uL (4.20-5.40)
[2019-04-24] MEDS ORDERED: Nitroglycerin 2% Ointment 1 INCH/1 GM Packet ONE (22:27)
[2019-04-24] MEDS ORDERED: Clopidogrel Bisulfate 75 MG TAB ONE (22:27)
[2019-04-24 22:33] LABS: ALT (SGPT) 29 U/L (8-55); AST (SGOT) 29 U/L (5-34); Albumin 4.1 g/dL (3.5-5.0); Alkaline Phosphatase 145 U/L (40-150); Anion Gap 14 mmol/L (10-20); BUN (Urea Nitrogen) 16 mg/dL (9.8-20.1); Bilirubin, Total 0.2 mg/dL (0.2-1.2); CK (CPK) 91 U/L (29-168); Calc. Creatinine Clearance 0 mL/min (70-130); Calcium 9.2 mg/dL (7.8-10.44); Carbon Dioxide 19 mmol/L (22-29); Chloride 108 mmol/L (98-107); Estimated GFR-MDRD Greater than 90; Globulin 2.5 g/dL (2.4-3.5); Glucose 93 mg/dL (70-105); Lipase 29 U/L (8-78); Potassium 4.2 mmol/L (3.5-5.1); Protein, Total 6.6 g/dL (6.0-8.3); Sodium 137 mmol/L (136-145)
[2019-04-24] MEDS ORDERED: Fentanyl 100 MCG/2 ML VIAL ONE (23:09)
[2019-04-25 00:12] LABS: Troponin I Less than 0.010 ng/mL (< 0.028)
[2019-04-25 00:34] VITALS: BMI 25.9
[2019-04-25] MEDS ORDERED: Ondansetron PF 4 MG/2 ML Vial IVP PRN (00:36)
[2019-04-25] MEDS ORDERED: Ondansetron ODT 4 MG TAB SL PRN (00:36)
[2019-04-25] MEDS ORDERED: Sodium Chloride 0.9% 1,000 ML IV SCH (00:36)
[2019-04-25 04:18] LABS: Troponin I Less than 0.010 ng/mL (< 0.028)
[2019-04-25] MEDS ORDERED: Lidocaine 2% Viscous Solution 10 ML, Aluminum & Magnesium Hydroxide 30 ML SSW SCH (04:30)
[2019-04-25] MEDS ORDERED: Ketorolac Tromethamine 30 MG/ML VIAL IVP PRN ×2 (05:28→05:44)
[2019-04-25] MEDS: FLUoxetine HCl 20 MG CAP PO SCH (08:49)
[2019-04-25] MEDS: Folic Acid 1 MG TAB PO SCH (08:50)
[2019-04-25] MEDS ORDERED: Clopidogrel Bisulfate 75 MG TAB PO SCH (09:00)
[2019-04-25] MEDS ORDERED: Colchicine 0.6 MG TAB PO SCH ×2 (09:44→10:00)
[2019-04-25] MEDS ORDERED: Ketorolac Tromethamine 30 MG/ML VIAL IVP SCH (09:45)
[2019-04-25] MEDS ORDERED: Etodolac ER 400 mg Tablet PO SCH (10:00)
--- NOTE | 2019-04-25 10:58 | SS ---
DATE OF ADMISSION: 04/24/2019 DATE OF DISCHARGE: 04/25/2019 This patient was left over from last night. CHIEF COMPLAINT: Chest discomfort. HISTORY OF PRESENT ILLNESS: The patient is a 53-year-old female with supraventricular tachycardia, chronic diastolic heart failure, GERD, and depression, presented to the emergency room with above complaint. The patient is currently incarcerated. The chest discomfort was sudden in onset, radiating to the mid back, left side of her jaw, as well as left arm. It was in the lower chest. It was pressure-like, improved after nitroglycerin. She was nauseous with shortness of breath and lightheaded as well. She also had some palpitations at that time. The pain was getting worse with deep breathing. She denies any belching, burping, heartburn, fever, chills, recent immobilization or travel. She has a history of cholecystectomy in the past. She is compliant with omeprazole 20 mg twice daily for GERD. The pain continued despite 3 nitroglycerin, for which she was brought into the emergency room. Her pain on ER arrival was 7/10. PAST MEDICAL HISTORY: 1. History of morbid obesity, status post gastric bypass. 2. GERD. 3. Chronic diastolic heart failure. 4. Depression. 5. Supraventricular tachycardia, status post ablation. 6. Chronic solid food dysphagia. PAST SURGICAL HISTORY: 1. EGD in December of this year showed grade A esophagitis along with sliding hiatal hernia. 2. Ablation in November of this year for supraventricular tachycardia. 3. Colonoscopy in December of this year that showed small internal hemorrhoids. The exam was to cecum due to inadequate bowel preparation. 4. Gastric bypass. 5. x2. 6. Hernia surgery. 7. Sinus surgery. 8. Hysterectomy. 9. Cholecystectomy. 10. Appendectomy. ALLERGIES: THE PATIENT IS ALLERGIC TO ASPIRIN. MEDICATIONS: Current home medications: 1. Prozac 40 mg daily. 2. Folic acid 1 mg daily. 3. Omeprazole 20 mg twice daily. 4. Vitamin B12 1000 mcg every 30 days. SOCIAL HISTORY: The patient currently incarcerated in senior living. No current use of tobacco, alcohol, or drug use. FAMILY HISTORY: Negative for premature coronary artery disease. REVIEW OF SYSTEMS: All other review of systems was reviewed and was found negative. PHYSICAL EXAMINATION: VITAL SIGNS: In the emergency room, showed temperature 98.1, respirations of 18, pulse rate of 62, blood pressure of 106/63, and O2 saturation 98% on room air. GENERAL: A 53-year-old female, in no apparent distress. Chest discomfort has significantly improved. HEENT: Head, atraumatic and normocephalic. Sclerae anicteric. Moist mucous membranes. No oral lesion. NECK: Supple. No JVD appreciated. No carotid bruit. LUNGS: Clear to auscultation bilaterally. No wheezing, rales, or rhonchi. HEART: S1 and S2 present. Regular rate and rhythm. No murmur, rubs, or gallops appreciated. No heaves or pulsation. ABDOMEN: Soft and nontender. Bowel sounds present. No rebound or guarding. No costovertebral angle tenderness. EXTREMITIES: No edema or calf tenderness. NEUROLOGIC: Grossly nonfocal. Moves all 4 extremities. PSYCHIATRIC: Alert, awake, and oriented x3. SKIN: Warm and dry. LYMPH NODE: No palpable lymph nodes in the neck. PERIPHERAL VASCULAR: Radial pulses palpable bilaterally. MUSCULOSKELETAL: No joint swelling or tenderness. LABORATORY FINDINGS: Troponin x3 negative. Hemoglobin 11.1 and hematocrit 32.8. BUN 16 and creatinine 0.6. LFTs in normal range. Lipase was normal. Urinalysis was negative. IMAGING STUDIES: EKG by my review showed sinus bradycardia with nonspecific ST-T wave changes. IMAGING STUDIES: Chest x-ray by my review was negative for infiltrate. IMPRESSION: 1. Chest discomfort with some improvement after sublingual nitroglycerin. 2. Negative Cardiolite stress test in November of this year. 3. Chronic diastolic heart failure, compensated. 4. History of supraventricular tachycardia, status post ablation in November of 2018. 5. History of chronic solid food dysphagia. 6. History of morbid obesity, status post gastric bypass. 7. Gastroesophageal reflux disease with grade A esophagitis, currently on PPIs. 8. Depression, mild, stable. The patient denies any suicidal ideation. 9. Chronic anemia. 10. History of vitamin B12 deficiency, on monthly vitamin B12 injections. PLAN: The patient will be monitored on the telemetry unit. Serial troponins have been negative. We will continue PPIs. We will consult Cardiology. She received one dose of Plavix in the emergency room. We will keep her n.p.o. Resume Prozac. Plan of care was discussed with the patient in detail. She stated understanding. DISPOSITION: The patient will be discharged back to the senior living probably later today if okay with Cardiology. Job ID: [id number]
[2019-04-25] MEDS: Etodolac ER 400 mg Tablet PO SCH (15:54)
--- NOTE | 2019-04-25 16:36 | CON ---
DATE OF CONSULTATION: 04/25/2019 REASON FOR CONSULTATION: Chest pain. HISTORY OF PRESENT ILLNESS: Ms. Akil Vargas is a very pleasant 53-year-old patient. She has a history of SVT with previous ablation. She has been having chest pain since last night at 8:00 p.m. The patient's pain is in the front of her chest, hurts with a deep breath. She said it seems to get better when she lays flat, worse when she leans forward. Also, it goes straight through to her back. EKGs have been normal. Cardiac enzymes have also been normal. PAST MEDICAL HISTORY: She has a history of SVT with previous ablation. She did undergo stress testing, nuclear medicine imaging in November with normal stress test November of this year. MEDICATIONS: She is currently incarcerated. She receives; 1. Folic acid. 2. Omeprazole. 3. Vitamin B12. ALLERGIES: TO ASPIRIN CAUSE HIVES. SOCIAL HISTORY: No tobacco or alcohol. She is incarcerated. PHYSICAL EXAMINATION: GENERAL: This is a pleasant 53-year-old woman, in no distress. VITAL SIGNS: Blood pressure 97/55, pulse 66 and regular. HEENT: Eyes, sclerae nonicteric. Mouth, mucous membranes moist. NECK: Supple. No lymphadenopathy. LUNGS: Clear. No wheezing, rales, or rhonchi. CARDIAC: Normal S1, normal S2. I do not hear murmur, rub, or gallop. ABDOMEN: Soft, nontender. EXTREMITIES: No clubbing. No cyanosis. No edema. SKIN: Warm and dry. PSYCHIATRIC: Mood and affect normal. NEUROLOGIC: Grossly normal. LABORATORY DATA: Cardiac enzymes are all less than . BNP 32.8. Creatinine is 0.66. EKG is normal. ASSESSMENT: 1. Chest pain, by her description sounds pericardial. 2. Recent negative stress test. 3. Previous SVT ablation. PLAN: 1. Give her anti-inflammatories and colchicine. 2. Re-evaluate patient later today. Job ID: [id number]
[2019-04-25] MEDS ORDERED: ISOVUE-370 76%-LOCM 1 ML ONE (17:16)
--- NOTE | 2019-04-25 17:37 | EKG ---
Test Reason : STAT Blood Pressure : / mmHG Vent. Rate : 060 BPM Atrial Rate : 060 BPM P-R Int : 116 ms QRS Dur : 084 ms QT Int : 440 ms P-R-T Axes : 044 024 040 degrees QTc Int : 440 ms Normal sinus rhythm Nonspecific T wave abnormality Abnormal ECG Confirmed by DONALD DIALLO ([id number]) on 04/25/2019 5:37:21 PM Referred By: BELÉN Confirmed By:DONALD DIALLO
--- NOTE | 2019-04-25 18:31 | CT ---
CT arteriogram chest with IV contrast and 3-D imaging HISTORY: Pleuritic chest pain. FINDINGS: There is good contrast opacification of the pulmonary artery and thoracic aorta with normal branching of the great vessels at the aortic arch. Calcified granulomata and tiny noncalcified subpleural nodules are apparent. At the left posterior costophrenic angle, a focal area of consolidat ion with irregular, nonmasslike margins, has enlarged slightly since the CT exam from 2018. It abuts the pleura at the posterior costophrenic angle. No pleural fluid or mediastinal adenopathy. Pos toperative changes of the partially visualized upper abdomen with extensive particulate matter in an enteric structure, likely gastric remnant. IMPRESSION: No CT evidence of pulmonary embolus. Interval worsening of infiltrate at the left posterior lung base. Likely a cause for left pleuritic c hest pain. Considerations for etiology would include infarct from an otherwise not visible process, infection, or bronchoalveolar neoplastic process. Please consider pulmonary evaluation.
[2019-04-25 19:09] LABS: Troponin I Less than 0.010 ng/mL (< 0.028)
[2019-04-25] MEDS ORDERED: Ondansetron ODT 4 MG TAB PO PRN (19:14)
[2019-04-25] MEDS: Colchicine 0.6 MG TAB PO SCH (20:38)
[2019-04-26] MEDS: Colchicine 0.6 MG TAB PO SCH ×2 (08:35→20:37)
[2019-04-26] MEDS: Folic Acid 1 MG TAB PO SCH (08:36)
[2019-04-26] MEDS: FLUoxetine HCl 20 MG CAP PO SCH (08:36)
--- NOTE | 2019-04-26 09:10 | PRG ---
DATE OF SERVICE: 04/26/2019 SUBJECTIVE: Ms. Vargas states she feels better today. She still has some pain with a breath, but it is improved from yesterday. OBJECTIVE: VITAL SIGNS: Her blood pressure is 97/54, pulse 69 and regular. LUNGS: Clear. CARDIAC: Normal S1 and normal S2. ABDOMEN: Soft and nontender. EXTREMITIES: There is no edema. LABORATORY DATA: All the cardiac enzymes are completely normal, all less than 0.010. The EKG showed no ischemia. The patient had a CT pulmonary angiogram last night due to recurrent pain. There was no evidence of any pulmonary embolism. It was noted there was a small infiltrate, left posterior lung base thought to be a source of left pleuritic pain. ASSESSMENT: 1. Chest pain most compatible with pericarditis, although there are no EKG changes, the clinical pattern does fit that. 2. EKG is normal even with severe pain. 3. All the cardiac enzymes are negative. 4. Previous supraventricular tachycardia ablation. PLAN: 1. Echocardiogram is pending. 2. Pulmonary consultation has been advised to evaluate the left posterior lung base infiltrate. 3. We will give her some intravenous fluid. Blood pressure is relatively low. She was given IV contrast yesterday. 4. She is on colchicine and anti-inflammatories. Job ID: [id number]
[2019-04-26] MEDS: Sodium Chloride 0.9% 1,000 ML IV SCH ×2 (10:15→20:35)
[2019-04-26 13:45] LABS: Anion Gap 13 mmol/L (10-20); BUN (Urea Nitrogen) 13 mg/dL (9.8-20.1); Calc. Creatinine Clearance 106 mL/min (70-130); Calcium 9.6 mg/dL (7.8-10.44); Carbon Dioxide 21 mmol/L (22-29); Chloride 107 mmol/L (98-107); Estimated GFR-MDRD Greater than 90; Glucose 86 mg/dL (70-105); Potassium 4.2 mmol/L (3.5-5.1); Sodium 137 mmol/L (136-145)
[2019-04-26] MEDS ORDERED: Lidocaine 2% Viscous Solution 10 ML, Aluminum & Magnesium Hydroxide 30 ML SSW SCH (15:00)
--- NOTE | 2019-04-26 16:16 | PDOC.HOSPP ---
- Subjective Encounter Date: 04/26/19 Encounter Time: 14:00 Subjective: pt up in bed still has pain to her chest - Objective Vital Signs & Weight: Vital Signs (12 hours) Temp Pulse Resp BP Pulse Ox 04/26/19 14:45 98.3 F 69 22 H 102/50 L 94 L 04/26/19 11:10 98.5 F 69 16 106/51 L 95 04/26/19 08:41 97.9 F 69 12 97/54 L 96 Weight Weight 146 lb 3.2 oz I&O: 04/25/19 04/26/19 04/27/19 06:59 06:59 06:59 Intake Total 1050 Output Total 700 1000 Balance 350 -1000 Result Diagrams: 04/24/19 22:04 04/26/19 10:23 Hospitalist ROS - Review of Systems Cardiovascular: reports: chest pain Gastrointestinal: denies: nausea, vomitting, abdominal pain, diarrhea, constipation, melena, hematochezia, other Genitourinary: denies: dysuria, frequency, incontinence, hematuria, retention, other - Medication Medications: Active Medications Generic Name Dose Route Start Last Admin Trade Name Freq PRN Reason Stop Dose Admin Colchicine 0.6 mg 04/25/19 21:00 04/26/19 08:35 Colchicine PO 0.6 mg BID ANA Administration Etodolac 400 mg 04/25/19 16:00 04/25/19 15:54 Lodine Er PO 400 mg Q24HR ANA Administration Fluoxetine HCl 40 mg 04/25/19 09:00 04/26/19 08:36 Prozac PO 40 mg QAM ANA Administration Folic Acid 1 mg 04/25/19 09:00 04/26/19 08:36 Folvite PO 1 mg DAILY ANA Administration Sodium Chloride 1,000 mls @ 100 mls/hr 04/26/19 08:45 04/26/19 10:15 Normal Saline 0.9% IV 1,000 mls .Q10H ANA Administration Ondansetron HCl 4 mg 04/25/19 19:14 04/25/19 20:38 Zofran Odt PO 4 mg Q6H PRN Administration Nausea/Vomiting Pantoprazole Sodium 40 mg 04/25/19 09:00 04/26/19 08:35 Protonix PO 40 mg BID ANA Administration Sodium Chloride 10 ml 04/25/19 09:00 04/26/19 08:36 Flush - Normal Saline IVF 10 ml Q12HR ANA Administration - Exam Neck: negative: supple, symmetric, no JVD, no thyromegaly, no lymphadenopathy, no carotid bruit, JVD Heart: negative: RRR, no murmur, no gallops, no rubs, normal peripheral pulses, irregular, diminshed peripheral pulses, murmur present, II/IV, III/IV Respiratory: negative: CTAB, no wheezes, no rales, no ronchi, normal chest expansion, no tachypnea, normal percussion, rales, rhonchi, tachypneic, wheezes Gastrointestinal: negative: soft, non-tender, non-distended, normal bowel sounds , no palpable masses, no hepatomegaly, no splenomegaly, no bruit, no guarding, no rigidity, tender to palpation, distended, diminished bowl sounds, voluntary guarding Hosp A/P (1) Chest pain Code(s): R07.9 - CHEST PAIN, UNSPECIFIED Status: Acute (2) Depression Code(s): F32.9 - MAJOR DEPRESSIVE DISORDER, SINGLE EPISODE, UNSPECIFIED Status : Acute (3) GERD (gastroesophageal reflux disease) Code(s): K21.9 - GASTRO-ESOPHAGEAL REFLUX DISEASE WITHOUT ESOPHAGITIS Status: Acute (4) Paroxysmal SVT (supraventricular tachycardia) Code(s): I47.1 - SUPRAVENTRICULAR TACHYCARDIA Status: Acute - Plan Her chest pain appear pleuritic in nature. she is on colchicine. cta chest negative. will also put her on gi cocktail. she is on ppi. echo pending.
[2019-04-26] MEDS: Etodolac ER 400 mg Tablet PO SCH (16:37)
[2019-04-26] MEDS ORDERED: Doxycycline 100 MG CAP PO SCH (21:00)
[2019-04-26] MEDS ORDERED: Ketorolac Tromethamine 30 MG/ML VIAL IVP SCH (23:15)
[2019-04-27] MEDS ORDERED: Acetaminophen/Codeine 30-300mg Tablet PO SCH (03:45)
[2019-04-27] MEDS ORDERED: HYDROcodone/Acetaminophen 5/325 mg Tablet PO SCH (03:45)
[2019-04-27] MEDS ORDERED: Lidocaine 2% Viscous Solution 10 ML, Aluminum & Magnesium Hydroxide 30 ML SSW SCH (04:15)
[2019-04-27] MEDS: Sodium Chloride 0.9% 1,000 ML IV SCH (06:42)
[2019-04-27] MEDS: Folic Acid 1 MG TAB PO SCH (09:04)
[2019-04-27] MEDS: FLUoxetine HCl 20 MG CAP PO SCH (09:04)
[2019-04-27] MEDS: Colchicine 0.6 MG TAB PO SCH ×2 (09:05→20:57)
[2019-04-27] MEDS ORDERED: Ketorolac Tromethamine 30 MG/ML VIAL IVP SCH (12:00)
--- NOTE | 2019-04-27 13:51 | PDOC.HOSPP ---
- Subjective Encounter Date: 04/27/19 Encounter Time: 10:00 Subjective: pt up in bed still complains of pain to her chest when she takes a deep breath. - Objective Vital Signs & Weight: Vital Signs (12 hours) Temp Pulse Resp BP Pulse Ox 04/27/19 12:12 97.9 F 76 15 110/61 97 04/27/19 07:54 98.1 F 60 15 101/57 L 98 04/27/19 03:53 97.5 F L 58 L 14 105/51 L 97 Weight Weight 142 lb 1.6 oz I&O: 04/26/19 04/27/19 04/28/19 06:59 06:59 06:59 Intake Total 1050 3423 300 Output Total 700 1300 Balance 350 2123 300 Result Diagrams: 04/24/19 22:04 04/26/19 10:23 Hospitalist ROS - Review of Systems Respiratory: denies: cough, dry, shortness of breath, hemoptysis, SOB with excertion, pleuritic pain, sputum, wheezing, other Cardiovascular: denies: chest pain, palpitations, orthopnea, paroxysmal noc. dyspnea, edema, light headedness, other Gastrointestinal: denies: nausea, vomitting, abdominal pain, diarrhea, constipation, melena, hematochezia, other - Medication Medications: Active Medications Generic Name Dose Route Start Last Admin Trade Name Justusq PRN Reason Stop Dose Admin Colchicine 0.6 mg 04/25/19 21:00 04/27/19 09:05 Colchicine PO 0.6 mg BID ANA Administration Etodolac 400 mg 04/25/19 16:00 04/26/19 16:37 Lodine Er PO 400 mg Q24HR ANA Administration Fluoxetine HCl 40 mg 04/25/19 09:00 04/27/19 09:04 Prozac PO 40 mg QAM ANA Administration Folic Acid 1 mg 04/25/19 09:00 04/27/19 09:04 Folvite PO 1 mg DAILY ANA Administration Sodium Chloride 1,000 mls @ 100 mls/hr 04/26/19 08:45 04/27/19 06:42 Normal Saline 0.9% IV 1,000 mls .Q10H ANA Administration Ketorolac Tromethamine 30 mg 04/27/19 12:00 04/27/19 11:17 Toradol IVP 04/28/19 12:01 30 mg Q6HR ANA Administration Ondansetron HCl 4 mg 04/25/19 19:14 04/25/19 20:38 Zofran Odt PO 4 mg Q6H PRN Administration Nausea/Vomiting Pantoprazole Sodium 40 mg 04/25/19 09:00 04/27/19 09:05 Protonix PO 40 mg BID ANA Administration Sodium Chloride 10 ml 04/25/19 09:00 04/27/19 09:09 Flush - Normal Saline IVF Not Given Q12HR ANA - Exam ENT: negative: normocephalic atraumatic, no oropharyngeal lesions, moist mucosa , dry oral mucosa Neck: negative: supple, symmetric, no JVD, no thyromegaly, no lymphadenopathy, no carotid bruit, JVD Heart: negative: RRR, no murmur, no gallops, no rubs, normal peripheral pulses, irregular, diminshed peripheral pulses, murmur present, II/IV, III/IV Respiratory - other findings: pain on palpation Hosp A/P (1) Chest pain Code(s): R07.9 - CHEST PAIN, UNSPECIFIED Status: Acute (2) Depression Code(s): F32.9 - MAJOR DEPRESSIVE DISORDER, SINGLE EPISODE, UNSPECIFIED Status : Acute (3) GERD (gastroesophageal reflux disease) Code(s): K21.9 - GASTRO-ESOPHAGEAL REFLUX DISEASE WITHOUT ESOPHAGITIS Status: Acute - Plan Her chest pain appear pleuritic in nature. she is on colchicine. cta chest negative. will also put her on gi cocktail. she is on ppi. echo pending. 04/27 will add toradol for her pain. will watch her one more night. echo indicated trace pericardial fluid.
[2019-04-27] MEDS: Etodolac ER 400 mg Tablet PO SCH (15:04)
[2019-04-27] MEDS: Ketorolac Tromethamine 10 MG TAB PO SCH (17:12)
[2019-04-27] MEDS ORDERED: predniSONE 20 MG TAB PO SCH (18:15)
--- NOTE | 2019-04-27 18:29 | PRG ---
DATE OF SERVICE: 04/27/2019 SUBJECTIVE: Ms. Vargas continues to have chest pain with a deep breath. It is painful even with a shallow breath, it hurts. OBJECTIVE: VITAL SIGNS: Blood pressure 107/56, pulse 64, regular. LUNGS: Clear. CARDIAC: Normal S1, normal S2. ASSESSMENT: 1. Pleuritic and pericardial type pain with no definite EKG evidence of pericarditis, but the pain sounds pleuritic/pericardial. 2. Pain persist despite colchicine and anti-inflammatory. PLAN: 1. We will give her single dose of prednisone. 2. She is currently on Toradol orally, so therefore I will stop the Lodine. 3. If pain persists, could do heart catheterization on Monday to exclude the possibility of underlying atherosclerotic heart disease is the source of her pain, but the pain does not really sound cardiac in origin and cardiac enzymes have all been negative. Job ID: [id number]
[2019-04-28] MEDS: Ketorolac Tromethamine 10 MG TAB PO SCH ×5 (00:03→23:59)
[2019-04-28] MEDS: Colchicine 0.6 MG TAB PO SCH ×2 (10:25→22:18)
[2019-04-28] MEDS: Folic Acid 1 MG TAB PO SCH (10:26)
[2019-04-28] MEDS: FLUoxetine HCl 20 MG CAP PO SCH (10:27)
--- NOTE | 2019-04-28 13:58 | PDOC.HOSPP ---
- Subjective Encounter Date: 04/28/19 Encounter Time: 10:30 Subjective: pt up in bed stated that she had a bad night last night. She had sever pain. spoke with nursing staff who stated she slept last night. - Objective Vital Signs & Weight: Vital Signs (12 hours) Temp Pulse Resp BP Pulse Ox 04/28/19 11:56 97.9 F 58 L 16 109/54 L 98 04/28/19 08:00 97 04/28/19 07:45 97.7 F 57 L 16 103/55 L 95 04/28/19 05:55 97.8 F 59 L 16 112/54 L 94 L Weight Weight 142 lb 1.6 oz I&O: 04/27/19 04/28/19 04/29/19 06:59 06:59 06:59 Intake Total 3423 600 Output Total 1300 Balance 2123 600 Result Diagrams: 04/24/19 22:04 04/26/19 10:23 Hospitalist ROS - Review of Systems Respiratory: denies: cough, dry, shortness of breath, hemoptysis, SOB with excertion, pleuritic pain, sputum, wheezing, other Cardiovascular: reports: chest pain. denies: palpitations, orthopnea, paroxysmal noc. dyspnea, edema, light headedness, other Gastrointestinal: denies: nausea, vomitting, abdominal pain, diarrhea, constipation, melena, hematochezia, other - Medication Medications: Active Medications Generic Name Dose Route Start Last Admin Trade Name Freq PRN Reason Stop Dose Admin Colchicine 0.6 mg 04/25/19 21:00 04/28/19 10:25 Colchicine PO 0.6 mg BID ANA Administration Fluoxetine HCl 40 mg 04/25/19 09:00 04/28/19 10:27 Prozac PO 40 mg QAM ANA Administration Folic Acid 1 mg 04/25/19 09:00 04/28/19 10:26 Folvite PO 1 mg DAILY ANA Administration Ketorolac Tromethamine 10 mg 04/27/19 18:00 04/28/19 11:49 Toradol PO 05/02/19 18:01 10 mg Q6HR ANA Administration Ondansetron HCl 4 mg 04/25/19 19:14 04/25/19 20:38 Zofran Odt PO 4 mg Q6H PRN Administration Nausea/Vomiting Pantoprazole Sodium 40 mg 04/25/19 09:00 04/28/19 10:27 Protonix PO 40 mg BID ANA Administration Sodium Chloride 10 ml 04/25/19 09:00 04/28/19 11:52 Flush - Normal Saline IVF 10 ml Q12HR ANA Administration - Exam Heart: negative: RRR, no murmur, no gallops, no rubs, normal peripheral pulses, irregular, diminshed peripheral pulses, murmur present, II/IV, III/IV Respiratory: negative: CTAB, no wheezes, no rales, no ronchi, normal chest expansion, no tachypnea, normal percussion, rales, rhonchi, tachypneic, wheezes Gastrointestinal: negative: soft, non-tender, non-distended, normal bowel sounds , no palpable masses, no hepatomegaly, no splenomegaly, no bruit, no guarding, no rigidity, tender to palpation, distended, diminished bowl sounds, voluntary guarding Hosp A/P (1) Chest pain Code(s): R07.9 - CHEST PAIN, UNSPECIFIED Status: Acute (2) Depression Code(s): F32.9 - MAJOR DEPRESSIVE DISORDER, SINGLE EPISODE, UNSPECIFIED Status : Acute (3) GERD (gastroesophageal reflux disease) Code(s): K21.9 - GASTRO-ESOPHAGEAL REFLUX DISEASE WITHOUT ESOPHAGITIS Status: Acute - Plan Her chest pain appear pleuritic in nature. she is on colchicine. cta chest negative. will also put her on gi cocktail. she is on ppi. echo pending. 04/27 will add toradol for her pain. will watch her one more night. echo indicated trace pericardial fluid. 04/28 pt received one dose of prednisone and she is on colchicine. cardiology to come by and see pt. ? cath per cardio note.
[2019-04-29] MEDS: Ketorolac Tromethamine 10 MG TAB PO SCH ×3 (05:50→18:44)
[2019-04-29 05:54] LABS: Anion Gap 13 mmol/L (10-20); BUN (Urea Nitrogen) 17 mg/dL (9.8-20.1); Calc. Creatinine Clearance 103 mL/min (70-130); Calcium 9.2 mg/dL (7.8-10.44); Carbon Dioxide 23 mmol/L (22-29); Chloride 108 mmol/L (98-107); Estimated GFR-MDRD Greater than 90; Glucose 84 mg/dL (70-105); Potassium 4.6 mmol/L (3.5-5.1); Sodium 139 mmol/L (136-145)
[2019-04-29] MEDS ORDERED: Lidocaine 1% (PF) 30 ML VIAL ONE (10:02)
[2019-04-29] MEDS ORDERED: Midazolam HCl 2 mg/2 ml Vial ONE (10:02)
[2019-04-29] MEDS ORDERED: Fentanyl 100 MCG/2 ML VIAL ONE (10:02)
[2019-04-29] MEDS ORDERED: Iopamidol 370 76% 100 ML VIAL ONE (10:05)
[2019-04-29] MEDS: FLUoxetine HCl 20 MG CAP PO SCH (10:47)
[2019-04-29] MEDS: Colchicine 0.6 MG TAB PO SCH ×2 (10:48→20:33)
[2019-04-29] MEDS: Folic Acid 1 MG TAB PO SCH (10:48)
[2019-04-29] MEDS ORDERED: Communication Order-Pharmacy FS SCH (11:00)
[2019-04-29] MEDS ORDERED: Nitroglycerin 100MG/250ML BOT 250 ML ONE (11:30)
[2019-04-29] MEDS ORDERED: Acetaminophen/Codeine 30-300mg Tablet PO PRN ×2 (12:03)
[2019-04-29] MEDS ORDERED: Nitroglycerin 0.4 MG TAB (25 Tab Bottle) SL PRN (12:03)
[2019-04-29] MEDS ORDERED: Sodium Chloride 0.9% 200 ML IV PRN (12:03)
[2019-04-29] MEDS ORDERED: predniSONE 20 MG TAB PO SCH (12:30)
--- NOTE | 2019-04-29 16:37 | EKG ---
Test Reason : Blood Pressure : / mmHG Vent. Rate : 060 BPM Atrial Rate : 060 BPM P-R Int : 128 ms QRS Dur : 080 ms QT Int : 434 ms P-R-T Axes : 051 009 034 degrees QTc Int : 434 ms Normal sinus rhythm Normal ECG When compared with ECG of 25-APR-2019 04:23, No significant change was found Confirmed by DONALD DIALLO ([id number]) on 04/29/2019 4:36:37 PM Referred By: ASHOK Confirmed By:DONALD DIALLO
[2019-04-29] MEDS ORDERED: Sodium Chloride 0.9% 500 ML IV SCH (16:45)
--- NOTE | 2019-04-29 17:04 | PDOC.HOSPP ---
- Subjective Encounter Date: 04/29/19 Encounter Time: 14:55 Subjective: pt up in bed still has pain when she takes a deep breath. - Objective Vital Signs & Weight: Vital Signs (12 hours) Temp Pulse Resp BP BP Pulse Ox 04/29/19 16:00 97.5 F L 66 16 96/55 L 96 04/29/19 12:20 97.9 F 54 L 14 99/55 L 99/55 L 96 04/29/19 08:00 97.1 F L 63 20 108/62 97 Weight Weight 146 lb 3.2 oz I&O: 04/28/19 04/29/19 04/30/19 06:59 06:59 06:59 Intake Total 600 260 Balance 600 260 Result Diagrams: 04/24/19 22:04 04/29/19 04:31 Hospitalist ROS - Review of Systems Respiratory: denies: cough, dry, shortness of breath, hemoptysis, SOB with excertion, pleuritic pain, sputum, wheezing, other Cardiovascular: reports: chest pain Gastrointestinal: denies: nausea, vomitting, abdominal pain, diarrhea, constipation, melena, hematochezia, other Genitourinary: denies: dysuria, frequency, incontinence, hematuria, retention, other - Medication Medications: Active Medications Generic Name Dose Route Start Last Admin Trade Name Freq PRN Reason Stop Dose Admin Colchicine 0.6 mg 04/25/19 21:00 04/29/19 10:48 Colchicine PO 0.6 mg BID ANA Administration Fluoxetine HCl 40 mg 04/25/19 09:00 04/29/19 10:47 Prozac PO 40 mg QAM ANA Administration Folic Acid 1 mg 04/25/19 09:00 04/29/19 10:48 Folvite PO 1 mg DAILY ANA Administration Ketorolac Tromethamine 10 mg 04/27/19 18:00 04/29/19 13:42 Toradol PO 05/02/19 18:01 10 mg Q6HR ANA Administration Ondansetron HCl 4 mg 04/25/19 19:14 04/25/19 20:38 Zofran Odt PO 4 mg Q6H PRN Administration Nausea/Vomiting Pantoprazole Sodium 40 mg 04/25/19 09:00 04/29/19 10:48 Protonix PO 40 mg BID ANA Administration Sodium Chloride 10 ml 04/25/19 09:00 04/29/19 10:52 Flush - Normal Saline IVF Not Given Q12HR ANA - Exam Neck: negative: supple, symmetric, no JVD, no thyromegaly, no lymphadenopathy, no carotid bruit, JVD Heart: negative: RRR, no murmur, no gallops, no rubs, normal peripheral pulses, irregular, diminshed peripheral pulses, murmur present, II/IV, III/IV Respiratory: negative: CTAB, no wheezes, no rales, no ronchi, normal chest expansion, no tachypnea, normal percussion, rales, rhonchi, tachypneic, wheezes Extremeties - other findings: right groin dressing intact good pedal pulse Hosp A/P (1) Chest pain Code(s): R07.9 - CHEST PAIN, UNSPECIFIED Status: Acute (2) Depression Code(s): F32.9 - MAJOR DEPRESSIVE DISORDER, SINGLE EPISODE, UNSPECIFIED Status : Acute (3) GERD (gastroesophageal reflux disease) Code(s): K21.9 - GASTRO-ESOPHAGEAL REFLUX DISEASE WITHOUT ESOPHAGITIS Status: Acute - Plan Her chest pain appear pleuritic in nature. she is on colchicine. cta chest negative. will also put her on gi cocktail. she is on ppi. echo pending. 04/27 will add toradol for her pain. will watch her one more night. echo indicated trace pericardial fluid. 04/28 pt received one dose of prednisone and she is on colchicine. cardiology to come by and see pt. ? cath per cardio note. 04/29 s/p cath medical management. per nursing pt got up to go to the bathroom and stated to bleed and became hypotensive. she is getting iv fluids. possible discharge in am if ok with cardiology.
[2019-04-29] MEDS ORDERED: Acetaminophen 325 MG TAB PO PRN (21:56)
[2019-04-30] MEDS ORDERED: predniSONE 20 MG TAB PO SCH (06:00)
[2019-04-30] MEDS: Ketorolac Tromethamine 10 MG TAB PO SCH ×3 (06:08→11:52)
[2019-04-30 07:29] LABS: #Eosinphils 0.2 thou/uL (0.0-0.7); #Lymphocytes 1.2 thou/uL (1.20-3.40); #Monocytes 0.6 thou/uL (0.11-0.59); #Neutrophils 4.5 thou/uL (1.40-6.50); %Basophils 0.3 % (0.0-1.0); %Eosinophils 2.8 % (0.0-10.0); %Lymphocytes 18.6 % (21.0-51.0); %Monocytes 8.8 % (0.0-10.0); %Neutrophils 69.5 % (42.0-75.0); Hemoglobin 11.4 g/dL (12.0-16.0); Mean Corpuscular HGB CONC 33.8 g/dL (32.0-36.0); Mean Corpuscular Hemoglobin 31.3 pg (27.0-31.0); Mean Corpuscular Volume 92.3 fL (78.0-98.0); Mean Platelet Volume 8.4 fL (7.4-10.4); Platelet Count 230 thou/uL (130-400); RBC Distribution Width 12.7 % (11.5-14.5); Red Blood Cell (RBC) Count 3.64 mill/uL (4.20-5.40); White Blood Cell (WBC) Count 6.4 thou/uL (4.8-10.8)
[2019-04-30 07:46] LABS: Anion Gap 10 mmol/L (10-20); BUN (Urea Nitrogen) 13 mg/dL (9.8-20.1); Calc. Creatinine Clearance 106 mL/min (70-130); Calcium 9.4 mg/dL (7.8-10.44); Carbon Dioxide 24 mmol/L (22-29); Chloride 108 mmol/L (98-107); Estimated GFR-MDRD Greater than 90; Glucose 80 mg/dL (70-105); Potassium 4.1 mmol/L (3.5-5.1); Sodium 138 mmol/L (136-145)
[2019-04-30] MEDS: Folic Acid 1 MG TAB PO SCH (08:43)
[2019-04-30] MEDS: FLUoxetine HCl 20 MG CAP PO SCH (08:43)
[2019-04-30] MEDS: Colchicine 0.6 MG TAB PO SCH (08:44)
[2019-04-30 10:59] VITALS: BP 105/65; TEMP 98.5
[2019-04-30] MEDS ORDERED: Ketorolac Tromethamine 10 MG TAB PO PRN (11:53)
--- NOTE | 2019-05-01 10:42 | DIS ---
DATE OF ADMISSION: 04/24/2019 DATE OF DISCHARGE: 04/30/2019 PRIMARY CARE PROVIDER: Unknown. DISCHARGE DIAGNOSES: 1. Pericarditis. 2. Chest pain secondary to pericarditis. 3. Left posterior lung base lesion, seen on CT scan. CONDITION OF PATIENT ON THE DAY OF DISCHARGE: Stable. PHYSICAL EXAMINATION: GENERAL: I assessed Ms. Vargas on the day of discharge. She reports that chest pain is better. VITAL SIGNS: Stable. HEART: S1 and S2 are heard, regular. LUNGS: Clear to auscultation bilaterally. CONSULTATIONS DURING THIS HOSPITALIZATION: Cardiology, Dr. Neville. DISCHARGE MEDICATIONS: 1. Prozac 40 mg daily. 2. Folic acid 1 mg daily. 3. Omeprazole 20 mg 2 times a day. 4. Vitamin B12 of 1000 mcg intramuscularly every month. 5. Toradol 10 mg every 6 hours as needed. 6. Colchicine 0.6 mg 2 times a day. HOSPITAL COURSE: Ms. Vargas is a pleasant 53-year-old lady, who was admitted to [facility] for chest pain secondary to pericarditis. Please refer to Dr. Mckeon's short-stay summary, dated April 25, 2019, for further details. She was seen by Cardiology Service. She was started on colchicine, but continued to have chest pain. She underwent cardiac catheterization and was found to have normal coronary arteries and left ventricular ejection fraction of 55%. She improved with colchicine and Toradol. 2D echocardiogram showed normal left ventricular size and left ventricular ejection fraction of 60% to 65%. CT angiogram of the chest showed possible infiltrate at the left posterior lung base, etiology would include infarcts from an otherwise not visible process, infection, or bronchoalveolar neoplastic process. A pulmonary evaluation is recommended. She has been advised to follow up with pulmonary physician through the [facility] as an outpatient. FOLLOWUP APPOINTMENTS: The patient is advised to follow up with primary care provider in 3 to 5 days' time. She is also advised to follow up with Pulmonary and Critical Care Medicine Service as outpatient through the [facility] for evaluation of lung lesion. LABORATORY DATA: On the day of discharge, she has white count of 6400, hemoglobin 11.4, and platelet count 230,000. Sodium 138, potassium 4.1, and creatinine 0.64. DISCHARGE DESTINATION: [facility], from where the patient was admitted to the hospital. TIME SPENT: Total amount of time spent coordinating this discharge: 32 minutes. Job ID: [id number]
== END 2019-04-30 14:43 | DRG 287 ==
LOC: EEVIPCON 21:18 → ERS 21:18 → 2SW 23:05 → OBSVTOIN 23:05 → 2NO 04-27 19:28
PROVIDERS: ADMIT Hospitalist; ATTEND Hospitalist
PROC: 4A023N7 Measurement of Cardiac Sampling and Pressure, Left Heart, Percutaneous Approach (ICD-10-PCS; principal; 2019-04-24)
PROC: B2111ZZ Fluoroscopy of Multiple Coronary Arteries using Low Osmolar Contrast (ICD-10-PCS; 2019-04-24)
PROC: B2151ZZ Fluoroscopy of Left Heart using Low Osmolar Contrast (ICD-10-PCS; 2019-04-24)
DX: I31.9 Disease of pericardium, unspecified (principal); I50.32 Chronic diastolic (congestive) heart failure; I47.1 Supraventricular tachycardia; Z98.890 Other specified postprocedural states; Z79.899 Other long term (current) drug therapy; Z88.8 Allergy status to other drugs, medicaments and biological substances; K21.9 Gastro-esophageal reflux disease without esophagitis; I11.0 Hypertensive heart disease with heart failure; F32.9 Major depressive disorder, single episode, unspecified; Z90.49 Acquired absence of other specified parts of digestive tract; Z98.84 Bariatric surgery status; D64.9 Anemia, unspecified; I95.9 Hypotension, unspecified; R91.1 Solitary pulmonary nodule
CPT/HCPCS: 36415; 71045; 71275; 76942; 80048; 80053; 81003; 82550; 83690; 83880; 84145; 84484; 85025; 93005; 93010; 93306; 93458; 96374; 99152; C1769; J1644; J1885; J2001; J2250; J3010; J7512; Q0162; Q9966; Q9967

== ENCOUNTER 2019-06-21 12:34 | Outpatient (CLI) | payer OTHER ==
--- NOTE | 2019-06-21 15:09 | CT ---
CT OF THE ABDOMEN WITHOUT IV CONTRAST INDICATION: Follow-up left lower lobe opacity COMPARISON: CTA of the chest dated April 25, [address] of the abdomen and pelvis d ated February 08, 2019 FINDINGS: ABDOMEN: Lung bases: The subpleural mixed groundglass and solid pulmonary mass in the left lower lobe is enlar ged now measuring 4.0 x 2.9 cm were previously measured 4.2 x 2.1 cm. Liver: No focal lesion. Gallbladder: Surgically absent Pancreas: Normal. Adrenal glands: Normal. Spleen: Normal. Kidneys and ureters: Normal. No hydronephrosis. Vasculature: Normal. Lymph nodes:No lymphadenopathy. Free fluid in abdomen:No free fluid is evident. Visualized bowel: There is postsurgical change of a gastric bypass. There is a mild amount of retaine d stool within the colon. Osseous structures: No acute osseous abnormality. No destructive osteolytic or osteoblastic lesion i s identified. There is scattered degenerative and osteoarthritic changes. Soft tissues:Normal. IMPRESSION: 1. Enlarging subpleural mixed groundglass and solid pulmonary mass of the left lower lobe. Differenti al considerations include chronic region of pneumonitis related to infection or inflammatory etiology such as eosinophilic pneumonia or cryptogenic organizing pneumonia. Other differential consi derations include a bronchoalveolar carcinoma. This lesion would be amenable to percutaneous sampling utilizing CT guidance.
== END 2019-06-21 12:35 | disposition home or self-care (01) ==
LOC: BICCT 12:34
PROVIDERS: ATTEND Family Medicine
DX: R91.8 Other nonspecific abnormal finding of lung field (principal)
CPT/HCPCS: 74150

== ENCOUNTER 2019-07-04 08:59 | Day surgery (SDC) | payer OTHER ==
[2019-07-04 09:32] LABS: #Eosinphils 0.1 thou/uL (0.0-0.7); #Monocytes 0.4 thou/uL (0.11-0.59); #Neutrophils 2.3 thou/uL (1.40-6.50); %Basophils 0.8 % (0.0-1.0); %Eosinophils 1.8 % (0.0-10.0); %Lymphocytes 27.6 % (21.0-51.0); %Monocytes 9.9 % (0.0-10.0); %Neutrophils 59.9 % (42.0-75.0); Hemoglobin 11.6 g/dL (12.0-16.0); Mean Corpuscular HGB CONC 32.3 g/dL (32.0-36.0); Mean Corpuscular Hemoglobin 29.9 pg (27.0-31.0); Mean Corpuscular Volume 92.6 fL (78.0-98.0); Mean Platelet Volume 8.4 fL (7.4-10.4); PTT 28.1 SEC (22.9-36.1); Platelet Count 254 thou/uL (130-400); RBC Distribution Width 12.8 % (11.5-14.5); Red Blood Cell (RBC) Count 3.88 mill/uL (4.20-5.40); White Blood Cell (WBC) Count 3.8 thou/uL (4.8-10.8)
[2019-07-04 10:11] VITALS: BP 109/64; TEMP 97.5; BMI 26.4
--- NOTE | 2019-07-04 11:43 | CT ---
CT-GUIDED LEFT LOWER LOBE LUNG MASS BIOPSY: INDICATION: Enlarging mixed solid and groundglass pulmonary nodule of the posterior left lower lobe. COMPARISON: Prior CT of the abdomen and pelvis dated February 08, 2019, CTA of the chest dated 04/25/[address] the abdomen dated 06/21/2019. TECHNIQUE: Informed consent was obtained. Preprocedure CT images were obtained for guidance purposes only. The m ixed solid and semisolid mass within the posterior left lower lobe was localized on the skin. The patient did undergo conscious sedation under guidance of the radiology nurse. The patient received a total of 50 mcg of IV fentanyl and 1 mg of IV Versed. Buffered 1% lidocaine was administered to the overlying subcutaneous tissues and left posterolateral intercostal space. Following this CT guidance was performed manipulating a 19-gauge trocar needle down to the lesion. Upon adequate placement of the needle adjacent to the margin of the lesion and within the lesion 4 separate core samples were ob tained utilizing a 20-gauge Bard core biopsy device. Dr. Lovell of the pathology department was on site to verify adequacy of tissue sampling. During the sampling the patient developed a very small po sterior pneumothorax. Postprocedural images demonstrated relative stability in the size of the small left posterior and inferior pneumothorax. Small amount of hemorrhage is seen surrounding the july ng mass following the biopsy. The patient tolerated the biopsy without difficulty. IMPRESSION: Successful CT-guided left lower lobe lung mass biopsy. Small postprocedural left-sided pneumothorax. The patient was escorted to the holding suite. The patient was placed on oxygen and placed in a left lateral decubitus position. The patient will lara ve a follow-up upright inspiratory expiratory x-ray in 30 minutes following the procedure. Awaiting pathology results. Transcribed Date/Time: 07/04/2019 11:52 AM
--- NOTE | 2019-07-04 12:05 | RAD ---
INSPIRATORY AND EXPIRATORY AP VIEWS OF THE CHEST: INDICATION: Status post left lower lobe lung mass biopsy, evaluate for pneumothorax. FINDINGS: The lungs are clear. No large left-sided pneumothorax is demonstrated. Surgical clips are again seen within the upper abdomen. Heart size is within normal limits. Right lung is clear. IMPRESSION: Status post left lower lobe lung mass biopsy. No pneumothorax identified. A follow-up examination in 30 minutes is recommended document stability. Transcribed Date/Time: 07/04/2019 12:13 PM
--- NOTE | 2019-07-04 13:09 | RAD ---
EXAM: XR Chest Insp/Exp DATE: 07/04/2019 12:30 PM INDICATION: Status post left lung biopsy COMPARISON: Prior inspiratory and expiratory chest radiograph dated July 04, 2019 FINDING: The suspected small left pneumothorax seen on the postprocedural CT evaluation has now quirino ected overlying left lung apex and is small in size. This is only seen on the expiration view. Right lung is clear. The remainder of the examination is unchanged. IMPRESSION:Small left apical pneumothorax. A repeat inspiratory and expiratory chest radiograph in 30 minutes is recommended.
--- NOTE | 2019-07-04 13:36 | RAD ---
EXAM: XR Chest Insp/Exp DATE: 07/04/2019 1:30 PM INDICATION: Status post left lung biopsy COMPARISON: Prior inspiratory expiratory radiographs dated 07/04/2019 at 11:35 AM and 12:10 PM FINDING: The small left apical pneumothorax has resolved. The remainder of the examination is unchan ged. IMPRESSION:Resolution of the small left apical pneumothorax.
== END 2019-07-04 14:15 | disposition home or self-care (01) ==
LOC: CT 08:59
PROVIDERS: ATTEND Family Medicine
PROC: 0BBJ3ZX Excision of Left Lower Lung Lobe, Percutaneous Approach, Diagnostic (ICD-10-PCS; principal; 2019-07-04)
DX: R91.1 Solitary pulmonary nodule (principal); K21.9 Gastro-esophageal reflux disease without esophagitis; F41.9 Anxiety disorder, unspecified; F32.9 Major depressive disorder, single episode, unspecified; Z79.899 Other long term (current) drug therapy; Z88.8 Allergy status to other drugs, medicaments and biological substances
CPT/HCPCS: 32405; 71045; 77012; 85025; 85610; 85730; 88305; 88333; 88334

== ENCOUNTER 2019-09-30 08:51 | Outpatient (CLI) | payer OTHER ==
--- NOTE | 2019-09-30 09:35 | CT ---
EXAM: CT of the chest with contrast HISTORY: Left lower lobe pneumonia COMPARISON: 04/25/2019, 07/04/2019 TECHNIQUE: Multiple contiguous axial images were obtained in a CT the chest with contrast. Coronal an d sagittal reformats were performed. FINDINGS: HEART: Normal in size without focal cardiac abnormality MEDIASTINUM: No hilar or mediastinal lymphadenopathy. LUNGS: There is an area of airspace opacity in the left lower lobe just above the left hemidiaphragm measuring 2.1 cm in size. This is smaller than on the exam from 04/25/2019 and similar in size to the size of this region on the date of lung biopsy. A calcified granuloma seen in the right lower lobe. A stable nodular opacity measuring 3 to 4 mm in size is seen on image 41 of 100 in the lingula. PLEURAL SPACE: No pneumothorax or pleural effusion. CHEST WALL SOFT TISSUES: Unremarkable OSSEOUS STRUCTURES: Degenerative changes in the spine. VISUALIZED SUBDIAPHRAGMATIC STRUCTURES: Status post cholecystectomy. Postsurgical changes in the stom ach. IMPRESSION: Stable area of airspace opacity in the left lower lobe. This may represent round atelectasis or a res olving infiltrate.
[2019-09-30] MEDS ORDERED: Iopamidol-370 76% 500 ML 1 ML ONE (15:45)
== END 2019-09-30 08:52 | disposition home or self-care (01) ==
LOC: BICCT 08:51
PROVIDERS: ATTEND Family Medicine
DX: R91.1 Solitary pulmonary nodule (principal); R91.8 Other nonspecific abnormal finding of lung field
CPT/HCPCS: 71260; Q9967

== ENCOUNTER 2019-11-19 18:39 | Emergency (ER) | payer OTHER ==
[2019-11-19 19:24] LABS: #Eosinphils 0.1 thou/uL (0.0-0.7); #Lymphocytes 1.3 thou/uL (1.20-3.40); #Monocytes 0.4 thou/uL (0.11-0.59); #Neutrophils 2.9 thou/uL (1.40-6.50); %Basophils 0.1 % (0.0-1.0); %Lymphocytes 27.7 % (21.0-51.0); %Neutrophils 61.3 % (42.0-75.0); Hemoglobin 10.4 g/dL (12.0-16.0); Mean Corpuscular Hemoglobin 31.1 pg (27.0-31.0); Mean Corpuscular Volume 91.6 fL (78.0-98.0); Mean Platelet Volume 8.5 fL (7.4-10.4); Platelet Count 240 thou/uL (130-400); RBC Distribution Width 12.3 % (11.5-14.5); Red Blood Cell (RBC) Count 3.33 mill/uL (4.20-5.40); White Blood Cell (WBC) Count 4.8 thou/uL (4.8-10.8)
--- NOTE | 2019-11-19 19:38 | RAD ---
RADIOGRAPH CHEST 1 VIEW: DATE: 11/19/2019 HISTORY: 53-year-old female with cough and fever FINDINGS: There are no airspace densities, pulmonary edema, pneumothorax, or cardiomegaly. The lateral costophr enic angles are sharp. Large number of surgical clips in the left upper quadrant, especially medially, some near midline, and a few in right upper quadrant. IMPRESSION: No acute cardiopulmonary findings.
[2019-11-19 19:47] LABS: Anion Gap 11 mmol/L (10-20); BUN (Urea Nitrogen) 19 mg/dL (9.8-20.1); Calc. Creatinine Clearance 0 mL/min (70-130); Calcium 9.2 mg/dL (7.8-10.44); Carbon Dioxide 22 mmol/L (22-29); Chloride 110 mmol/L (98-107); Estimated GFR-MDRD 89; Glucose 104 mg/dL (70-105); Potassium 4.4 mmol/L (3.5-5.1); Sodium 139 mmol/L (136-145)
== END 2019-11-19 19:51 | disposition home or self-care (01) ==
LOC: ERS 18:39
DX: B34.9 Viral infection, unspecified (principal); R05 Cough; F32.9 Major depressive disorder, single episode, unspecified; Z79.899 Other long term (current) drug therapy
CPT/HCPCS: 71045; 80048; 83605; 85025; 87040; 87804; U0001

== ENCOUNTER 2020-08-03 08:48 | Outpatient (CLI) | payer OTHER ==
--- NOTE | 2020-08-03 10:33 | CT ---
CT CHEST WITHOUT CONTRAST: INDICATION: Followup lung mass. COMPARISON: CT chest 09/30/2019. FINDINGS: The parenchymal opacity in the posterior left lung base is again seen. This does not appear signific antly changed when compared to 09/30/2019. Calcified granuloma in the right lower lobe is again noted. The lung hollins otherwise appear clear and unchanged. The mediastinum is unremarkable. Osseous stru ctures show degenerative spine changes which are stable. IMPRESSION: The parenchymal opacity in the posterior left lower lobe appears stable when compared to 09/30/2019. POS: AGW
== END 2020-08-03 08:49 | disposition home or self-care (01) ==
LOC: BICCT 08:48
PROVIDERS: ATTEND Family Medicine
DX: R91.8 Other nonspecific abnormal finding of lung field (principal)
CPT/HCPCS: 71250